=== PATIENT | female | born 1985 | race Caucasian/White ===

== ENCOUNTER → 2016-06-30 | Outpatient (CLI) | payer BC ==
[~2016-06-30] MED LIST: IBUP-1050 PO; LEVO50TA6 PO; NORETAB25 PO; OXYC-57 PO; POLY335019 PO; PRENTAB26 PO; [UNRECOGNIZED DRUG - OTHER]; [UNRECOGNIZED DRUG - OTHER] PO
[2016-06-30 13:04] LABS: BASO % 0.1 %; BASO ABS # 0.01 K/uL (0-0.2); COMPLETE YES; EOS % 0.9 %; HEMATOCRIT 30.6 % (37-47); IG% 1.1 %; LYMPH % 20.8 %; LYMPH ABS # 2.36 K/uL (1.2-3.4); MEAN CELL VOLUME 82.3 fL (80-100); MEAN CORPUSCULAR HEMOGLOBIN 28.5 pg (25-34); MEAN CORPUSCULAR HGB CONC 34.6 g/dl (32-36); MEAN PLATELET VOLUME 9.2 fL (7.4-10.4); MONO % 6.2 %; NEUT % 70.9 %; PLATELET COUNT 294 K/uL (130-400); RED BLOOD COUNT 3.72 M/uL (4.2-5.4); WHITE BLOOD COUNT 11.35 K/uL (4.8-10.8)
== END | disposition home or self-care (01) ==
LOC: C.LABBC 10:41
PROVIDERS: ATTEND Internal Medicine
DX: R29.898 Other symptoms and signs involving the musculoskeletal system (principal)

== ENCOUNTER → 2016-06-30 | Outpatient (CLI) | payer BC ==
[2016-06-30 13:42] LABS: THYROID STIMULATING HORMONE 0.324 uIu/ml (0.300-4.500)
== END | disposition home or self-care (01) ==
LOC: C.LABBC 10:39
PROVIDERS: ATTEND Internal Medicine Endocrinology, Diabetes & Metabolism
DX: E03.9 Hypothyroidism, unspecified (principal)

== ENCOUNTER → 2016-07-28 | Outpatient (CLI) | payer BC ==
[2016-07-28 11:35] LABS: THYROID STIMULATING HORMONE 0.503 uIu/ml (0.300-4.500)
== END | disposition home or self-care (01) ==
LOC: C.LABBC 10:10
PROVIDERS: ATTEND Internal Medicine Endocrinology, Diabetes & Metabolism
DX: E03.9 Hypothyroidism, unspecified (principal)

== ENCOUNTER → 2016-08-10 | Outpatient (CLI) | payer BC ==
[2016-08-10 10:57] LABS: HEMATOCRIT 30.6 % (37-47)
[2016-08-10 12:05] LABS: URINE APPEARANCE CLEAR (CLEAR); URINE BILIRUBIN NEG (NEG); URINE COLOR YELLOW; URINE EPITHELIAL CELL AUTO 20-30 /lpf (0-5); URINE NITRITE NEG (NEG); URINE SPECIFIC GRAVITY 1.011 (1.000-1.030); UROBILINOGEN NEG (NEG)
[2016-08-10 12:06] LABS: MANUAL MICROSCOPIC REQUIRED? NO; REVIEW REQ? NO
[2016-08-10 12:13] LABS: GTGD 50 Grams
== END | disposition home or self-care (01) ==
LOC: C.LAB1850 09:19
PROVIDERS: ATTEND Obstetrics & Gynecology
DX: Z34.82 Encounter for supervision of other normal pregnancy, second trimester (principal)

== ENCOUNTER → 2016-08-25 | Outpatient (CLI) | payer BC ==
[2016-08-25 13:50] LABS: THYROID STIMULATING HORMONE 0.341 uIu/ml (0.300-4.500)
== END | disposition home or self-care (01) ==
LOC: C.LABBC 10:55
PROVIDERS: ATTEND Internal Medicine Endocrinology, Diabetes & Metabolism
DX: E03.9 Hypothyroidism, unspecified (principal)

== ENCOUNTER → 2016-10-05 | Outpatient (CLI) | payer BC ==
[~2016-10-05] MED LIST changes: +BISM1CAP; +PRLSR20 PO; +SACC250C11 PO
== END | disposition home or self-care (01) ==
LOC: C.LABSPEC 10:59
PROVIDERS: ATTEND Obstetrics & Gynecology
DX: Z34.03 Encounter for supervision of normal first pregnancy, third trimester (principal)

== ENCOUNTER → 2016-10-13 | Outpatient (CLI) | payer BC ==
[2016-10-13 11:24] LABS: ALT/SGPT 17 U/L (12-78); AST/SGOT 17 U/L (15-37); BLOOD UREA NITROGEN 9 mg/dl (7-18); BUN/CREATININE RATIO 16.7 (10-20); CALCIUM 9.4 mg/dl (8.5-10.1); CARBON DIOXIDE 24 mmol/L (21-32); CHLORIDE 104 mmol/L (98-107); CREATININE 0.53 mg/dl (0.60-1.20); GLUCOSE 73 mg/dl (70-99); POTASSIUM 4.1 mmol/L (3.5-5.1); SODIUM 139 mmol/L (136-145)
[2016-10-13 11:26] LABS: ALB/GLOB RATIO 0.6 (0.9-2); ALKALINE PHOSPHATASE 107 U/L (45-117)
[2016-10-17 18:16] LABS: CHENODEOXYCHOLIC ACID 0.7 umol/L (< OR = 3.1); CHOLIC ACID 0.7 umol/L (< OR = 1.8); DEOXYCHOLIC ACID 1.3 umol/L (< OR = 2.4); TOTAL BILE ACIDS 2.7 umol/L (< OR = 6.8)
== END | disposition home or self-care (01) ==
LOC: C.LABBC 08:52
PROVIDERS: ATTEND Obstetrics & Gynecology
DX: R21 Rash and other nonspecific skin eruption (principal)

== ENCOUNTER 2016-10-31 17:31 | Outpatient (CLI) | payer BC ==
[~2016-10-31] VITALS: Ht 162.6 cm; Wt 90.0 kg
[2016-10-31 18:20] VITALS: Ht 162.6 cm; Wt 90.0 kg
[2017-01-22] MEDS ORDERED: [UNRECOGNIZED DRUG - OTHER] PO (07:56)
[2017-01-22] MEDS ORDERED: IBUP-1050 PO (07:56)
[2017-01-22] MEDS ORDERED: NORETAB25 PO (07:56)
[2017-03-22] MEDS ORDERED: BISM1CAP (08:41)
[2017-03-22] MEDS ORDERED: SACC250C11 PO (08:41)
[2017-03-22] MEDS ORDERED: PRLSR20 PO (08:41)
== END 2016-10-31 18:30 | disposition home or self-care (01) ==
LOC: C.LD 17:31 → C.OPB 17:31
PROVIDERS: ATTEND Obstetrics & Gynecology
DX: O99.89 Other specified diseases and conditions complicating pregnancy, childbirth and the puerperium (principal); W19.XXXA Unspecified fall, initial encounter; Z3A.39 39 weeks gestation of pregnancy

== ENCOUNTER 2016-11-02 09:29 | Inpatient (IN) | payer BC ==
[~2016-11-02] VITALS: Ht 162.6 cm; Wt 90.9 kg
[2016-11-02] MEDS ORDERED: LACTATED RINGER'S 1000ML 1,000 ML IV PRN (10:23)
[2016-11-02] MEDS ORDERED: MISOPROSTOL 25 MCG TAB PV ONE (10:30)
[2016-11-02 10:48] LABS: HEMATOCRIT 34.5 % (37-47); MEAN CELL VOLUME 86.7 fL (80-100); MEAN CORPUSCULAR HEMOGLOBIN 30.7 pg (25-34); MEAN CORPUSCULAR HGB CONC 35.4 g/dl (32-36); MEAN PLATELET VOLUME 9.3 fL (7.4-10.4); PLATELET COUNT 218 K/uL (130-400); RED BLOOD COUNT 3.98 M/uL (4.2-5.4); WHITE BLOOD COUNT 11.84 K/uL (4.8-10.8)
[2016-11-02 11:15] LABS: AST/SGOT 15 U/L (15-37); CREATININE 0.57 mg/dl (0.60-1.20)
[2016-11-02 11:30] VITALS: Ht 162.6 cm; Wt 90.9 kg
[2016-11-02] MEDS ORDERED: PRENTAB26 PO (11:40)
[2016-11-02] MEDS ORDERED: LEVO50TA6 PO (11:40)
[2016-11-02] MEDS ORDERED: POLY335019 PO (11:42)
[2016-11-02] MEDS ORDERED: [UNRECOGNIZED DRUG - OTHER] (11:42)
[2016-11-02] MEDS ORDERED: BUTORPHANOL TARTRATE 1 MG/ML VIAL IV PRN (23:30)
[2016-11-03] MEDS: LACTATED RINGER'S 1000ML 1,000 ML IV SCH ×3 (02:40→21:44)
[2016-11-03] MEDS ORDERED: LACTATED RINGER'S 1000ML 500 ML IV PRN ×2 (06:35→14:15)
[2016-11-03] MEDS: LEVOTHYROXINE 50 MCG TAB PO SCH (07:01)
[2016-11-03] MEDS: OXYTOCIN 30 UNITS/500ML NSS IV PRN ×2 (08:40→18:50)
[2016-11-03] MEDS ORDERED: FENTANYL 2MCG/ML ROPIV 1.25MG/ML 100ML BAG EPI ONE (13:57)
[2016-11-03] MEDS ORDERED: BUPIVACAINE 0.25% 30 ML VIAL ONE (13:57)
[2016-11-03] MEDS ORDERED: EpHEDrine SULFATE INJ 50 MG/ML AMP ONE (13:57)
[2016-11-03] MEDS ORDERED: FENTANYL CITRATE INJ 50 MCG/1 ML 2 ML VIAL ONE (13:58)
[2016-11-03] MEDS ORDERED: NALOXONE HCL INJ 0.4 MG/1 ML VIAL/CARP IV PRN (14:15)
[2016-11-03] MEDS ORDERED: DiphenhydrAMINE HCL 50 MG/ML VIAL IV PRN (14:15)
[2016-11-03] MEDS ORDERED: ONDANSETRON INJ 2 MG/ML 2 ML VIAL IV PRN (14:15)
[2016-11-03] MEDS ORDERED: EpHEDrine SULFATE INJ 50 MG/ML AMP IV PRN (14:15)
[2016-11-03] MEDS ORDERED: NALBUPHINE HCL INJ 10 MG/ML AMP IV PRN (14:15)
[2016-11-03] MEDS ORDERED: NALOXONE HCL INJ 1 MG in SODIUM CHLORIDE 0.9% 1000ML 1,000 ML IV PRN (14:15)
[2016-11-03] MEDS: FENTANYL 2MCG/ML ROPIV 1.25MG/ML 100ML BAG EPI PRN ×2 (18:50→21:43)
[2016-11-04] VITALS (9 sets, daily range): BP systolic 118–143; BP diastolic 70–83; PULSE 83–86; TEMP 36.8–37.3; O2SAT 96–98
[2016-11-04] MEDS: FENTANYL 2MCG/ML ROPIV 1.25MG/ML 100ML BAG EPI PRN ×5 (00:12→08:58)
[2016-11-04] MEDS ORDERED: NURSING VERBAL MED ORDER ONE ×2 (04:00→20:00)
[2016-11-04] MEDS: LACTATED RINGER'S 1000ML 1,000 ML IV SCH ×2 (04:06→06:33)
[2016-11-04] MEDS ORDERED: FENTANYL CITRATE INJ 50 MCG/1 ML 2 ML VIAL ONE ×2 (04:40→08:56)
[2016-11-04] MEDS: LEVOTHYROXINE 50 MCG TAB PO SCH (07:30)
[2016-11-04] MEDS: OXYTOCIN 30 UNITS/500ML NSS IV PRN (08:33)
[2016-11-04] MEDS ORDERED: BUPIVACAINE 0.25% 30 ML VIAL ONE (08:56)
--- NOTE | 2016-11-04 09:30 | Anesthesiology Progress Note ---
Anesthesia Progress Note Date of Service Nov 04, 2016. Progress Notes Pt state having increasing labor pains. She states having back pain and lower abdominal discomfort with contractions. I administered fentanyl 100mcg and 2mL of 0.25% bupivacaine through her epidural. VSS throughout. Pt stated having improved pain relief with the epidural bolus.
[2016-11-04] MEDS ORDERED: LACTATED RINGER'S 1000ML 1,000 ML IV SCH ×2 (12:20→13:53)
[2016-11-04] MEDS ORDERED: CITRIC ACID/SODIUM CITRATE 15 ML UDC ONE (12:23)
[2016-11-04] MEDS ORDERED: CITRIC ACID/SODIUM CITRATE 15 ML UDC PO ONE (12:30)
[2016-11-04] MEDS ORDERED: LIDOCAINE/EPINEPHRINE 2% 1:200,000 20 ML SDV ONE (12:48)
[2016-11-04] MEDS ORDERED: CEFAZOLIN IV 2,000 MG in DEXTROSE 5% 50ML 50 ML IV SCH (13:00)
[2016-11-04] MEDS ORDERED: MoRPHine SULFATE PF 1 MG/ML 10 ML AMP/VIAL ONE (13:14)
[2016-11-04] MEDS ORDERED: ONDANSETRON INJ 2 MG/ML 2 ML VIAL ONE (13:18)
[2016-11-04] MEDS ORDERED: OXYTOCIN INJ 10 UNITS/ML VIAL ONE (13:18)
[2016-11-04] MEDS ORDERED: FENTANYL CITRATE INJ 50 MCG/1 ML 2 ML VIAL IV PRN (13:45)
[2016-11-04] MEDS ORDERED: ATROPINE SULFATE 0.1 MG/ML 5ML SYR IV PRN (13:45)
[2016-11-04] MEDS ORDERED: NO NARCOTICS OR SEDATIVES SCH ×2 (13:45→16:45)
[2016-11-04] MEDS ORDERED: EpHEDrine SULFATE INJ 50 MG/ML AMP IV PRN (13:45)
[2016-11-04] MEDS ORDERED: MoRPHine SULFATE PF 1 MG/ML 10 ML AMP/VIAL EPI PRN (13:45)
[2016-11-04] MEDS ORDERED: DC INTRASPINAL MORPHINE PRN (13:45)
[2016-11-04] MEDS ORDERED: CONTINUE MEDICATION ONE (13:45)
[2016-11-04] MEDS ORDERED: MEPERIDINE HCL 25 MG/ML CARP IV PRN (13:45)
[2016-11-04] MEDS ORDERED: ONDANSETRON INJ 2 MG/ML 2 ML VIAL IV PRN ×2 (13:45→14:00)
--- NOTE | 2016-11-04 13:57 | Anesthesia Procedure Note ---
Anesthesia Epidural Removal Nt Date & Time Nov 04, 2016 at 13:57 Vital Signs Pain Intensity: 2.0 Notes Mental Status: alert / awake / arousable, participated in evaluation Nausea / Vomiting: adequately controlled Pain: adequately controlled Airway Patency, RR, SpO2: stable & adequate BP & HR: stable & adequate Hydration State: stable & adequate Neuraxial Anesthesia: was administered, sensory block is resolving Anesthetic Complications: no major complications apparent, pt satisfied with anesthetic care Epidural: removed without complications, with tip intact
[2016-11-04] MEDS ORDERED: HYDROCORTISONE ACETATE 25 MG SUPP PR PRN (14:00)
[2016-11-04] MEDS ORDERED: DiphenhydrAMINE HCL 50 MG/ML VIAL IV PRN (14:00)
[2016-11-04] MEDS ORDERED: OXYCODONE/ACETAMINOPHEN 5-325 TAB PO PRN (14:00)
[2016-11-04] MEDS ORDERED: SUPERCREAM 0.870 % 15GM JAR EXT PRN (14:00)
[2016-11-04] MEDS ORDERED: DIPHTHERIA/TETANUS/PERTUSSIS 0.5 ML SYR/VIAL IM. ONE (14:00)
[2016-11-04] MEDS ORDERED: BENZOCAINE 20% AER SPR 82.5 GM CAN EXT PRN (14:00)
[2016-11-04] MEDS ORDERED: LANOLIN OINT EXT PRN ×2 (14:00)
[2016-11-04] MEDS ORDERED: CARBOPROST TROMETHAMINE 250 MCG/ML AMP ONE (14:19)
--- NOTE | 2016-11-04 14:20 | Anesthesiology Progress Note ---
Anesthesia Post Op Note Date & Time Nov 04, 2016 at 14:20 Vital Signs Pain Intensity: 2.0 Notes Mental Status: alert / awake / arousable, participated in evaluation Pt Amnestic to Procedure: Yes Nausea / Vomiting: adequately controlled Pain: adequately controlled Airway Patency, RR, SpO2: stable & adequate BP & HR: stable & adequate Hydration State: stable & adequate Neuraxial Anesthesia: was administered, sensory block is resolving Anesthetic Complications: no major complications apparent
--- NOTE | 2016-11-04 14:32 | [facility] Post Operative Brief Note ---
Immediate Operative Summary Operative Date Nov 04, 2016. Pre-Operative Diagnosis 40 Week Intrauterine ;Gestational Hypertension; Induction of Labor; Failure to Progress; Post-Operative Diagnosis Same Procedure(s) Performed Primary Caesarean Section; Delivery of a live femaile child at [address] Clarke Gandy Dancer Surgeon(s) Melissa Salter RN Estimated Blood Loss 800 cc Findings viable female, apgars 9,9. ROP. Normal uterus tubes and ovaries bilaterally. Fluids (cc crystalloids) 1400 Specimens cord blood placenta-examine Drains fortune Anesthesia epidural with duramorph Complication(s) None Disposition Recovery Room / PACU
--- NOTE | 2016-11-04 14:40 | OPERATIVE REPORT ---
DATE OF OPERATION: 11/04/2016 PREOPERATIVE DIAGNOSES: 1. 40+ weeks intrauterine . 2. Gestational hypertension. 3. Induction of labor. 4. Failure to progress. POSTOPERATIVE DIAGNOSES: Same. PROCEDURE: Primary low transverse section. SURGEON: Fang Clarke MD PLASTICS TECHNICIAN: RN. IV FLUIDS: 1400 mL. ESTIMATED BLOOD LOSS: 800 mL. URINE OUTPUT: 200 mL. ANESTHESIA: Epidural with Duramorph. FINDINGS: Viable female infant, Apgars 9 and 9. Normal uterus, tubes and ovaries bilaterally. BRIEF HISTORY AND HOSPITAL COURSE: A 31-year-old 1, para 0 at 40 and 1/7 weeks estimated gestational age on the day of her admission due to gestational hypertension of . The patient's cervix was unfavorable and she did undergo cervical ripening to include Cytotec as well as Rodriugez mechanical balloon dilation. Ultimately, she began Pitocin in the morning of 11/03/2016. Her membranes were artificially ruptured for clear fluid. She progressed to approximately 8 cm dilated. She required placement of several IUPCs in order to try to trace adequate MVUs with the use of Pitocin at one point up to 40 milliunits per minute. Despite efforts to improve the labor pattern, the cervical dilation remained at 8 cm and decision was made to proceed with section for failure to progress on 11/04/2016. DESCRIPTION OF PROCEDURE: The patient was taken to the operating room and identified. She had been bolused through her epidural and was in the supine position with a leftward tilt and prepped and draped in the usual sterile fashion. A Rodriguez catheter had already been placed. Her anesthesia level was tested and deemed adequate. The knife was then used to create a Pfannenstiel skin incision that was carried down to the underlying layer of fascia. The fascia was nicked in the midline and this opening was extended laterally using Nice scissors. Cynthia clamps were placed on the superior and inferior aspects of the fascial incision tenting it upwards and the underlying rectus muscles were dissected off the overlying fascia, both sharply and bluntly using Nice scissors. The rectus muscles were bluntly in the midline. The peritoneal cavity was bluntly entered into. Bladder blade was placed. The vesicouterine peritoneum was elevated with a Danielle clamp and incised with Metzenbaum scissors. It was extended laterally and the bladder flap was created digitally. The bladder blade was replaced. The knife was used to create a hysterotomy that was then stretched. Clear fluid was noted. The quencher operator's hand was placed through the hysterotomy and the head was elevated out of the pelvis and flexed. The bladder blade was removed. With fundal pressure, the cephalic was delivered. The anterior shoulder easily was being delivered and therefore the remainder of the body was delivered. The was vigorous and crying at and the mouth and nose were bulb suctioned. At approximately 30 seconds of life the cord was clamped, it was then doubly clamped and cut and the was handed off to the awaiting pediatricians. Cord blood was obtained. The placenta was manually expressed. The uterus was exteriorized and cleared of all clots and debris. Dilute Pitocin infusion begun; however, uterine tone was poor. For that reason, 0.25 mg of subQ Hemabate was administered directly into the uterine muscle. This improved the uterine tone. The hysterotomy was closed in a routine fashion with 0 Vicryl in 2 layers, first layer running interlocking, second layer imbricating. Additional bleeding site to the left of the midline of the hysterotomy was stitched with interrupted [id number] suture of 2-0 Vicryl for excellent hemostasis. The pelvis was irrigated. The uterus returned to the abdomen. The gutters were cleared of all clots and debris. The hysterotomy was reinspected and noted to be hemostatic. The bladder blade was removed. The fascia was closed in a running fashion using 0 Vicryl. The subcutaneous fat was copiously irrigated. The subcutaneous tissues were reapproximated using 2-0 chromic. The skin was closed in a subcuticular fashion using 4-0 Vicryl. All sponge, lap and needle counts were correct x2. The patient was returned to the recovery room in stable condition. I attest to the content of the Intraoperative Record and any orders documented therein. Any exceptions are noted below. MTDD
[2016-11-04] MEDS ORDERED: MEPERIDINE HCL 25 MG/ML CARP ONE (15:07)
[2016-11-04] MEDS ORDERED: CONTINUE MEDICATION SCH (16:45)
[2016-11-04] MEDS: SIMETHICONE 80 MG CHEW PO SCH ×2 (17:44→19:36)
[2016-11-04] MEDS: OXYTOCIN INJ 20 UNITS in LACTATED RINGER'S 1000ML 1,000 ML IV SCH (17:45)
[2016-11-04] MEDS ORDERED: ACETAMINOPHEN IV 100 ML IV ONE (18:45)
[2016-11-04] MEDS: DOCUSATE SODIUM 100 MG CAP PO SCH (19:36)
[2016-11-04] MEDS ORDERED: LEVOTHYROXINE 50 MCG TAB PO SCH (20:00)
[2016-11-05] VITALS (10 sets, daily range): BP systolic 120–132; BP diastolic 76–82; PULSE 80–94; TEMP 36.6–36.8; O2SAT 94–96
[2016-11-05] MEDS: OXYTOCIN INJ 20 UNITS in LACTATED RINGER'S 1000ML 1,000 ML IV SCH (02:44)
[2016-11-05 06:28] LABS: MEAN CELL VOLUME 85.8 fL (80-100); MEAN CORPUSCULAR HEMOGLOBIN 29.3 pg (25-34); MEAN CORPUSCULAR HGB CONC 34.1 g/dl (32-36); MEAN PLATELET VOLUME 9.2 fL (7.4-10.4); PLATELET COUNT 156 K/uL (130-400); RED BLOOD COUNT 3.38 M/uL (4.2-5.4); WHITE BLOOD COUNT 13.73 K/uL (4.8-10.8)
[2016-11-05 07:11] LABS: BASO % 0.1 %; BASO ABS # 0.01 K/uL (0-0.2); COMPLETE YES; EOS % 0.9 %; IG% 0.7 %; LYMPH % 9.5 %; MONO % 5.4 %; NEUT % 83.4 %
[2016-11-05] MEDS ORDERED: DC INTRASPINAL MORPHINE ONE (07:30)
[2016-11-05] MEDS: LEVOTHYROXINE 50 MCG TAB PO SCH (07:35)
[2016-11-05] MEDS: DOCUSATE SODIUM 100 MG CAP PO SCH ×2 (07:36→19:55)
[2016-11-05] MEDS: SIMETHICONE 80 MG CHEW PO SCH ×4 (07:36→19:55)
--- NOTE | 2016-11-05 08:03 | Progress Note ---
Subjective Nov 05, 2016. Subjective conversation w/ patient, physical exam Ambulation: ambulating normally Voiding: no voiding problems Passing Gas: Yes Diet Tolerance: Clear Liquids Lochia: Small Feeding Type: Breast Feeding Pain: incisional pain and cramping Comment: reviewed surgery and events leading to surgery Objective Vital Signs Date Time Temp Pulse Resp B/P (MAP) Pulse Ox O2 Delivery O2 Flow Rate FiO2 11/05/16 06:00 18 96 11/05/16 04:59 18 95 11/05/16 04:00 36.8 80 20 127/76 (93) 95 Room Air 11/05/16 04:00 20 95 11/05/16 02:40 18 94 11/05/16 01:30 18 94 11/05/16 00:30 16 95 11/04/16 23:30 18 96 11/04/16 23:30 96 Room Air 11/04/16 23:30 36.8 85 18 127/83 (98) 96 Room Air 11/04/16 23:00 18 96 11/04/16 22:00 18 96 11/04/16 21:00 14 96 11/04/16 20:00 18 97 11/04/16 20:00 97 Room Air 11/04/16 20:00 37.3 83 18 118/70 (86) 97 Room Air 11/04/16 19:00 20 98 11/04/16 19:00 18 98 11/04/16 18:00 18 97 11/04/16 17:00 20 97 11/04/16 16:45 97 Room Air 11/04/16 16:45 37.1 86 20 143/82 (102) Room Air 11/04/16 16:40 Room Air Physical Exam General Appearance: WELL-APPEARING, WD/WN, NO APPARENT DISTRESS Respiratory/Chest: lungs clear Cardiovascular: regular rate, rhythm Abdomen: non tender, soft Fundus: Firm, Relation to Umbilicus (2 down) Incision Description: Clean, Dry & Intact Extremities: non-tender Laboratory Results Last 24 Hours Test 11/05/16 06:01 White Blood Count 13.73 K/uL Red Blood Count 3.38 M/uL Hemoglobin 9.9 g/dL Hematocrit 29.0 % Mean Corpuscular Volume 85.8 fL Mean Corpuscular Hemoglobin 29.3 pg Mean Corpuscular Hemoglobin Concent 34.1 g/dl Platelet Count 156 K/uL Mean Platelet Volume 9.2 fL Neutrophils (%) (Auto) 83.4 % Lymphocytes (%) (Auto) 9.5 % Monocytes (%) (Auto) 5.4 % Eosinophils (%) (Auto) 0.9 % Basophils (%) (Auto) 0.1 % Neutrophils # (Auto) 11.46 K/uL Lymphocytes # (Auto) 1.30 K/uL Monocytes # (Auto) 0.74 K/uL Eosinophils # (Auto) 0.13 K/uL Basophils # (Auto) 0.01 K/uL RDW Standard Deviation 42.3 fL RDW Coefficient of Variation 13.5 % Immature Granulocyte % (Auto) 0.7 % Immature Granulocyte # (Auto) 0.09 K/uL Assessment and Plan Post-Op Day#: 1 Continue Routine Care: stable, routine care. hgb noted. fortune to come out this am, await spont void. adv diet and try po pain meds.
[2016-11-05] MEDS: IBUPROFEN 600 MG TAB PO PRN ×2 (08:27→19:59)
[2016-11-05] MEDS: OXYCODONE/ACETAMINOPHEN 5-325 TAB PO PRN ×3 (08:51→20:14)
[2016-11-06] MEDS: IBUPROFEN 600 MG TAB PO PRN ×5 (02:10→21:06)
[2016-11-06] MEDS: OXYCODONE/ACETAMINOPHEN 5-325 TAB PO PRN ×4 (02:11→16:35)
[2016-11-06 06:11] LABS: HEMATOCRIT 27.4 % (37-47)
[2016-11-06 07:15] VITALS: BP 124/79; PULSE 81; TEMP 36.5
[2016-11-06] MEDS: LEVOTHYROXINE 50 MCG TAB PO SCH (07:20)
[2016-11-06] MEDS: SIMETHICONE 80 MG CHEW PO SCH ×4 (07:21→21:05)
--- NOTE | 2016-11-06 07:31 | Progress Note ---
Subjective Nov 06, 2016. Subjective conversation w/ patient (lots of swelling), physical exam Ambulation: ambulating normally Voiding: no voiding problems Feeding Type: Breast Feeding Objective Vital Signs Date Time Temp Pulse Resp B/P (MAP) Pulse Ox O2 Delivery O2 Flow Rate FiO2 11/05/16 23:20 Room Air 11/05/16 23:20 36.6 94 18 132/78 (96) 96 Room Air 11/05/16 15:44 36.6 93 18 128/82 (97) Room Air 11/05/16 15:30 Room Air 11/05/16 12:30 36.7 87 18 123/79 (94) 95 Room Air 11/05/16 08:30 96 Room Air 11/05/16 08:30 36.7 86 18 120/76 (91) 96 Room Air Physical Exam General Appearance: WELL-APPEARING, NO APPARENT DISTRESS Respiratory/Chest: lungs clear Cardiovascular: regular rate, rhythm Fundus: Firm, Non-Tender Incision Description: Clean, Dry & Intact Extremities: + pedal edema (edema in vulva too) Laboratory Results Last 24 Hours Test 11/06/16 05:55 Hemoglobin 9.5 g/dL Hematocrit 27.4 % Assessment and Plan Post-Op Day#: 2 Continue Routine Care: - discussed swelling and delayed mobilization of fluid - h/h stable - ambulate, doing well
[2016-11-06] MEDS: DOCUSATE SODIUM 100 MG CAP PO SCH ×2 (11:21→21:05)
[2016-11-06 15:51] VITALS: BP 133/88; PULSE 76; TEMP 36.2; O2SAT 94
[2016-11-07] VITALS: BP 128/85; PULSE 82; TEMP 36.6; O2SAT 97
[2016-11-07] MEDS ORDERED: LEVOTHYROXINE 50 MCG TAB PO SCH (06:30)
[2016-11-07] MEDS ORDERED: OXYC-57 PO (06:32)
--- NOTE | 2016-11-07 06:33 | Discharge Instructions ---
Discharge Instructions Date of Service Nov 07, 2016. Admission Reason for Admission: Check Labor Discharge Discharge Diagnosis / Problem: Discharge Goals Goal(s): Routine recovery after Activity Recommendations Activity Limitations: per Instructions/Follow-up section . Instructions / Follow-Up Instructions / Follow-Up ACTIVITY RECOMMENDATIONS: * Gradual return to full activity over the next 2-3 weeks. * No lifting - nothing heavier than baby over the next 2-3 weeks. * Do not engage in vigorous exercise, sexual activity or sports until cleared by your physician. * Do not drive or operate any motorized equipment until cleared by your physician. * You may shower/bathe daily. MEDICATIONS: For discomfort or pain, you may use Acetaminophen (Tylenol), Ibuprofen (Advil), or Naproxen (Aleve) following the package directions. For constipation you may use Colace following the package directions. BREAST CARE: If you are not breast feeding: * Wear a supportive bra 24 hours a day for one to two weeks. * Avoid stimulating your breasts and nipples as much as possible during the first few weeks after delivery. * When taking a shower, have the warm water hit your back, not breasts. * When your breasts feel full, apply ice packs. Usually three to four times a day helps ease the discomfort. * Take a mild pain medication (Tylenol / Motrin) when you are uncomfortable. If breast feeding: * Use breast milk to lubricate nipples. Lansinoh cream may be used for sore nipples. You do not need to remove cream prior to breast feeding. If using a different brand of cream, check the label for directions regarding removal of cream prior to nursing. * Wear a supportive bra. * If having problems with breasts or breast feeding, call a edi consultant or your health care provider. SPECIAL CARE INSTRUCTIONS: When you are discharged from the hospital, it is important for you to follow the instructions listed below: * During the first week at home, you should be able to care for yourself and your baby. In addition, the usual light household activities are encouraged. * Limit your activities to the way you feel. Do not try to clean the house or move furniture. Be sensible. * If you actively engage in sports and have done so up until the time of your delivery, you may resume these activities as soon as you feel able. This may take up to one month or even longer. Use good judgment. * Continue to take your vitamins for at least six weeks after the of your baby. * Your diet need not be limited unless you were on a special diet before your delivery. Breast-feeding mothers need around 2500 calories per day and at least 64-80 ounces of fluid per day (8 to 10 glasses). * You should eat foods from the four major food groups. Crash diets or fad diets are to be avoided. Eating lean meats, fresh fruits and vegetables, low-fat dairy products, high fiber foods and a regular exercise program, will help you get back to your pre- weight without putting your health at risk. * Constipation is sometimes a problem after delivery. Take a mild laxative as needed. If breast feeding, Milk of Magnesia is acceptable to use. You may use a suppository or Fleets enema. * A daily shower or tub bath is suggested. Wash incision daily with warm soapy water and pat dry. It doesn't need to be covered unless drainage is present. * A bloody vaginal discharge will usually continue until around four weeks . A small amount of bleeding may continue for as long as six weeks. Vaginal discharge changes from the bright red bleeding after delivery to pink then brownish and finally yellowish-pink before becoming white and disappearing. * Bleeding may increase with activity. Your first period may come in 4-8 weeks. If you are breast feeding, your period may be delayed even longer. * Iraan (sex) can begin whenever both you and your partner feel comfortable and do not have any form of genital infection. It is recommended that you wait at least six weeks for internal and external healing to occur. If you have questions, please talk to your health care practitioner. A condom should be used to prevent infection and . * Foreplay, gentle intercourse and lubrication is very important the first several times to prevent pain. A water-based lubricant such as K-Y jelly or Astroglide may be used. * If you have RH negative blood and your baby is RH positive, you will receive RHOGAM by injection prior to discharge. The nurse will give you a card to keep with you that has the date and place that you received RHOGAM after delivery. * During your care, you had a Rubella screen done to check for the presence of rubella antibodies in your blood. If your test was negative, you will receive a Rubella vaccine prior to discharge. This vaccine may cause a fever, soreness at the injection site and flu-like symptoms. If these symptoms persist, notify your health care practitioner. is not advised for one month after a Rubella vaccine. * Verbalizes understanding of car seat law as reviewed with patient nursing. * Car Seat hand-out given and reviewed with patient by nursing. * Shaken baby information reviewed with patient by nursing. Call you doctor if: * Heavy bleeding (saturating several pads an hour) or passing clots the size of your fist. * A fever >101 degrees F (38.3 degrees C) on two occasions four hours apart and /or chills. * Unusual pain in the pelvic or vaginal areas. * Call the doctor for any increased redness, drainage or swelling around the incision and any pain unrelieved by prescribed pain medication. * "Baby Blues" lasting longer than two weeks. If you have any questions or concerns, call your health care practitioner at . FOLLOW UP VISIT: * Please call the office at to schedule a 6 week examination. It is important you keep this appointment. It is important for you to make arrangements for either yearly or twice yearly check-ups thereafter. Current Hospital Diet Patient's current hospital diet: Regular OB Diet Discharge Diet Recommended Diet: Regular Diet Procedures Procedures Performed: Primary Caesarean Section; Delivery of a live femaile child at 1310 Pending Studies Studies pending at discharge: no Medical Emergencies . Who to Call and When: Medical Emergencies: If at any time you feel your situation is an emergency, please call [phone] immediately. . Non-Emergent Contact Non-Emergency issues call your: Primary Care Provider . . "Provider Documentation" section prepared by Mary Villarreal. . VTE Core Measure Inpt VTE Proph given/why not?: Treatment not indicated [place] Drug Monitoring Program Search Results: patient reviewed within database, no issues identified
--- NOTE | 2016-11-07 06:37 | Progress Note ---
Subjective Nov 07, 2016. Subjective conversation w/ patient, physical exam, chart review Ambulation: ambulating normally Voiding: no voiding problems Passing Gas: Yes Diet Tolerance: Regular Diet Lochia: Moderate Feeding Type: Breast Feeding Review of Systems Constitutional: No fever, No chills Respiratory: No cough Cardiac: No chest pain Abdomen: No nausea, No vomiting Objective Vital Signs Date Time Temp Pulse Resp B/P (MAP) Pulse Ox O2 Delivery O2 Flow Rate FiO2 11/07/16 00:00 36.6 82 18 128/85 (99) 97 Room Air 11/07/16 00:00 97 Room Air 11/06/16 15:51 36.2 76 20 133/88 (103) 94 Room Air 11/06/16 07:15 36.5 81 20 124/79 (94) Room Air 11/06/16 07:15 Room Air Physical Exam General Appearance: WELL-APPEARING, NO APPARENT DISTRESS Respiratory/Chest: no respiratory distress, no accessory muscle use Cardiovascular: no edema Abdomen: non tender, soft Fundus: Firm Incision Description: Clean, Dry & Intact Extremities: no calf tenderness Assessment and Plan Post-Op Day#: 3 Continue Routine Care: Multiple questions answered yesterday and today. Patient in good spirits generally, but is disappointed that baby has lost 10% of weight and she is being asked to supplement. Encouraged to follow reccs as "fed is best." Patient desires D/C home today. Instructions reviewed.
[2016-11-07 08:00] VITALS: BP 132/85; PULSE 80; TEMP 36.6; O2SAT 97
[2016-11-07] MEDS: DOCUSATE SODIUM 100 MG CAP PO SCH (08:46)
[2016-11-07] MEDS: SIMETHICONE 80 MG CHEW PO SCH ×2 (08:46→12:34)
[2016-11-07] MEDS: OXYCODONE/ACETAMINOPHEN 5-325 TAB PO PRN ×2 (08:47→12:36)
[2016-11-07] MEDS: IBUPROFEN 600 MG TAB PO PRN ×2 (08:47→12:36)
[2016-11-07 13:15] VITALS: BP_DIAS 85; PULSE 80; TEMP 36.6
--- NOTE | 2016-11-08 10:52 | DISCHARGE SUMMARY ---
ADMISSION DIAGNOSES: 1. 40+ weeks intrauterine . 2. Gestational hypertension. 3. Induction of labor. 4. Failure to progress. DISCHARGE DIAGNOSES: Same. PROCEDURE: Primary low transverse section. BRIEF HISTORY AND HOSPITAL COURSE: A 31-year-old 1, para 0 at 40-1/7 weeks estimated gestational age on the day of her admission due to gestational hypertension of . The patient's cervix was unfavorable and she did undergo cervical ripening to include Cytotec as well as Rodriguez mechanical balloon dilation. Ultimately, she began Pitocin on the morning of 11/03/2016. Her membranes were artificially ruptured for clear fluid. She progressed to approximately 8 cm dilated. She required placement of several IUPCs in order to try to trace adequate MVUs with the use of Pitocin, which at one point was at 40 milliunits per minute. Despite efforts to improve her labor pattern, cervical dilation remained at 8 cm and the decision was made to proceed with for failure to progress on 11/04/2016. The patient underwent the above stated procedure without incident with estimated blood loss of 800 mL. Her postop course and recovery was otherwise unremarkable. Her hemoglobin was 9.5. She was tolerating a regular diet, voiding spontaneously without difficulty and ambulating without difficulty and was stable for her discharge to home on her postop day #3. She was given appropriate discharge instructions as well as pain medication prescriptions. She is to follow up in 6 weeks time for her checkup. JUDAH
[2017-01-22] MEDS ORDERED: NORETAB25 PO (07:56)
[2017-01-22] MEDS ORDERED: [UNRECOGNIZED DRUG - OTHER] PO (07:56)
[2017-01-22] MEDS ORDERED: IBUP-1050 PO (07:56)
[2017-03-22] MEDS ORDERED: PRLSR20 PO (08:41)
[2017-03-22] MEDS ORDERED: BISM1CAP (08:41)
[2017-03-22] MEDS ORDERED: SACC250C11 PO (08:41)
== END 2016-11-07 13:15 | disposition home or self-care (01) | DRG 766 ==
LOC: C.OPB 09:29 → C.LD 09:29 → C.OPB 10:27 → C.OBG 11-04 16:47
PROVIDERS: ADMIT Obstetrics & Gynecology; ATTEND Obstetrics & Gynecology
PROC: 10D00Z1 Extraction of Products of Conception, Low, Open Approach (ICD-10-PCS; principal; 2016-11-04 12:22)
PROC: 3E0P7GC Introduction of Other Therapeutic Substance into Female Reproductive, Via Natural or Artificial Opening (ICD-10-PCS; principal; 2016-11-04 12:22)
PROC: 0U7C7ZZ Dilation of Cervix, Via Natural or Artificial Opening (ICD-10-PCS; principal; 2016-11-04 12:22)
PROC: 3E033VJ Introduction of Other Hormone into Peripheral Vein, Percutaneous Approach (ICD-10-PCS; principal; 2016-11-04 12:22)
PROC: 10H07YZ Insertion of Other Device into Products of Conception, Via Natural or Artificial Opening (ICD-10-PCS; principal; 2016-11-04 12:22)
DX: O62.2 Other uterine inertia (principal); O13.4 Gestational [pregnancy-induced] hypertension without significant proteinuria, complicating childbirth; O99.284 Endocrine, nutritional and metabolic diseases complicating childbirth; E06.3 Autoimmune thyroiditis; O48.0 Post-term pregnancy; O76 Abnormality in fetal heart rate and rhythm complicating labor and delivery; O12.05 Gestational edema, complicating the puerperium; Z37.0 Single live birth; Z3A.40 40 weeks gestation of pregnancy; Z79.899 Other long term (current) drug therapy

== ENCOUNTER → 2016-12-14 | Outpatient (CLI) | payer BC ==
[~2016-12-14] MED LIST changes: -BISM1CAP; -PRLSR20 PO; -SACC250C11 PO
== END | disposition home or self-care (01) ==
LOC: C.PAPS 09:58
PROVIDERS: ATTEND Obstetrics & Gynecology
DX: Z01.419 Encounter for gynecological examination (general) (routine) without abnormal findings (principal)

== ENCOUNTER → 2016-12-18 | Outpatient (CLI) | payer BC ==
[2016-12-18 14:23] LABS: BASO % 0.3 %; BASO ABS # 0.02 K/uL (0-0.2); COMPLETE YES; EOS % 1.3 %; HEMATOCRIT 43.2 % (37-47); IG% 0.1 %; LYMPH ABS # 1.94 K/uL (1.2-3.4); MEAN CELL VOLUME 85.5 fL (80-100); MEAN CORPUSCULAR HEMOGLOBIN 28.5 pg (25-34); MEAN CORPUSCULAR HGB CONC 33.3 g/dl (32-36); MEAN PLATELET VOLUME 9.2 fL (7.4-10.4); MONO % 6.1 %; NEUT % 65.2 %; PLATELET COUNT 355 K/uL (130-400); RED BLOOD COUNT 5.05 M/uL (4.2-5.4); WHITE BLOOD COUNT 7.18 K/uL (4.8-10.8)
[2016-12-18 14:29] LABS: ALT/SGPT 21 U/L (12-78); AST/SGOT 13 U/L (15-37); BLOOD UREA NITROGEN 15 mg/dl (7-18); BUN/CREATININE RATIO 18.2 (10-20); CALCIUM 9.3 mg/dl (8.5-10.1); CARBON DIOXIDE 29 mmol/L (21-32); CHLORIDE 107 mmol/L (98-107); CREATININE 0.83 mg/dl (0.60-1.20); GLUCOSE 76 mg/dl (70-99); POTASSIUM 4.2 mmol/L (3.5-5.1); SODIUM 139 mmol/L (136-145)
[2016-12-18 14:31] LABS: ALB/GLOB RATIO 0.9 (0.9-2); ALKALINE PHOSPHATASE 94 U/L (45-117); FERRITIN 67.8 ng/ml (8.0-388.0); TOTAL IRON BINDING CAPACITY 272 mcg/dl (250-450)
== END | disposition home or self-care (01) ==
LOC: C.LABBC 11:37
PROVIDERS: ATTEND Internal Medicine
DX: Z39.2 Encounter for routine postpartum follow-up (principal); D64.9 Anemia, unspecified

== ENCOUNTER → 2016-12-26 | Outpatient (CLI) | payer BC ==
--- NOTE | 2016-12-26 14:07 | DIAGNOSTIC IMAGING REPORT ---
CHEST 2 VIEWS ROUTINE CLINICAL HISTORY: Z39.2 6 weeks follow-up dyspnea COMPARISON STUDY: No previous studies for comparison. FINDINGS: The bones soft tissues and hemidiaphragms are normal. The cardiomediastinal silhouette is normal. The lungs are clear. The pulmonary vasculature is normal. IMPRESSION: Negative chest. The above report was generated using voice recognition software. It may contain grammatical, syntax or spelling errors. Electronically signed by: Taz Valdivia M.D. 12/26/2016 2:06 PM Dictated Date/Time: 12/26/2016 2:06 PM
--- NOTE | 2016-12-26 14:36 | DIAGNOSTIC IMAGING REPORT ---
KUB CLINICAL HISTORY: 31 years-old Female presenting with ABD PAIN. TECHNIQUE: Single supine view of the abdomen was obtained. COMPARISON: Correlation made to plain radiographs of the lumbar spine from 03/04/2015. FINDINGS: No calcifications project over the kidneys to suggest nephrolithiasis. Mild stool burden throughout the colon. Normal bowel gas pattern. No evidence of free intraperitoneal gas, pneumatosis, or portal venous gas. Osseous structures normal. IMPRESSION: 1. No acute intra-abdominal pathology. Electronically signed by: Olivier Lewis M.D. 12/26/2016 2:35 PM Dictated Date/Time: 12/26/2016 2:34 PM
== END | disposition home or self-care (01) ==
LOC: C.RADBC 13:12
PROVIDERS: ATTEND Internal Medicine Endocrinology, Diabetes & Metabolism
DX: Z39.2 Encounter for routine postpartum follow-up (principal); R06.00 Dyspnea, unspecified; R10.9 Unspecified abdominal pain

== ENCOUNTER → 2017-01-03 | Outpatient (CLI) | payer BC ==
[2017-01-03 17:29] LABS: THYROID STIMULATING HORMONE 0.35 uIu/ml (0.300-4.500)
== END | disposition home or self-care (01) ==
LOC: C.LABBC 12:36
PROVIDERS: ATTEND Internal Medicine
DX: Z39.2 Encounter for routine postpartum follow-up (principal)

== ENCOUNTER → 2017-01-07 | Outpatient (CLI) | payer BC ==
[2017-01-07 15:57] LABS: URINE APPEARANCE CLEAR (CLEAR); URINE BILIRUBIN NEG (NEG); URINE COLOR YELLOW; URINE NITRITE NEG (NEG); URINE SPECIFIC GRAVITY 1.019 (1.000-1.030); UROBILINOGEN NEG (NEG); ZZUR CULT IF INDIC CLEAN CATCH NO
[2017-01-07 16:00] LABS: MANUAL MICROSCOPIC REQUIRED? NO; REVIEW REQ? NO
== END | disposition home or self-care (01) ==
LOC: C.LABSPEC 15:15
PROVIDERS: ATTEND Obstetrics & Gynecology
DX: R10.9 Unspecified abdominal pain (principal)

== ENCOUNTER → 2017-01-08 | Outpatient (CLI) | payer BC ==
[2017-01-08 13:44] LABS: BASO % 0.2 %; BASO ABS # 0.02 K/uL (0-0.2); COMPLETE YES; HEMATOCRIT 40.4 % (37-47); IG% 0.1 %; LYMPH % 30.5 %; LYMPH ABS # 2.46 K/uL (1.2-3.4); MEAN CELL VOLUME 85.1 fL (80-100); MEAN CORPUSCULAR HGB CONC 32.9 g/dl (32-36); MEAN PLATELET VOLUME 9.2 fL (7.4-10.4); MONO % 5.8 %; NEUT % 62.4 %; PLATELET COUNT 342 K/uL (130-400); RED BLOOD COUNT 4.75 M/uL (4.2-5.4); WHITE BLOOD COUNT 8.06 K/uL (4.8-10.8)
[2017-01-08 15:28] LABS: ALT/SGPT 21 U/L (12-78); AMYLASE 57 U/L (25-115); AST/SGOT 14 U/L (15-37); BLOOD UREA NITROGEN 16 mg/dl (7-18); BUN/CREATININE RATIO 22.6 (10-20); CALCIUM 9.1 mg/dl (8.5-10.1); CARBON DIOXIDE 28 mmol/L (21-32); CHLORIDE 108 mmol/L (98-107); CREATININE 0.71 mg/dl (0.60-1.20); GLUCOSE 76 mg/dl (70-99); SODIUM 141 mmol/L (136-145)
[2017-01-08 15:29] LABS: ALB/GLOB RATIO 1.1 (0.9-2); ALKALINE PHOSPHATASE 97 U/L (45-117)
== END | disposition home or self-care (01) ==
LOC: C.LABBC 12:16
PROVIDERS: ATTEND Obstetrics & Gynecology
DX: R10.9 Unspecified abdominal pain (principal)

== ENCOUNTER → 2017-01-10 | Outpatient (CLI) | payer BC ==
--- NOTE | 2017-01-10 08:44 | DIAGNOSTIC IMAGING REPORT ---
GALLBLADDER-ABD LIMITED HISTORY: 31 years-old Female R10.9 Abdominal pain COMPARISON: KUB radiographs 12/26/2016 TECHNIQUE: Multiple real-time sonographic images of the abdominal right upper quadrant were obtained assessing grayscale appearance FINDINGS: The imaged pancreas is unremarkable. There are at least 3 nonspecific echogenic lesions of of the left hepatic lobe, largest of which measures 1.2 x 0.9 cm. The gallbladder appears unremarkable without shadowing cholelithiasis, gallbladder wall thickening or pericholecystic fluid. Sonographic Johnson sign was reported as negative. Common bile duct is normal, 0.4 cm. Right kidney measures 10.7 cm in length and demonstrates no hydronephrosis. IMPRESSION: 1. Normal sonographic appearance of the gallbladder without cholelithiasis or sonographic evidence of acute cholecystitis. 2. At least 3 nonspecific echogenic lesions of the left hepatic lobe, largest of which measures up to 1.2 cm may reflect hemangiomas, however are nonspecific. 3. No biliary ductal dilatation. The above report was generated using voice recognition software. It may contain grammatical, syntax or spelling errors. Electronically signed by: John Rosa M.D. 01/10/2017 8:43 AM Dictated Date/Time: 01/10/2017 8:29 AM
== END | disposition home or self-care (01) ==
LOC: C.ULTRBC 07:40
PROVIDERS: ATTEND Obstetrics & Gynecology
DX: R10.9 Unspecified abdominal pain (principal); K76.9 Liver disease, unspecified

== ENCOUNTER → 2017-02-01 | Outpatient (CLI) | payer BC ==
--- NOTE | 2017-02-01 17:29 | DIAGNOSTIC IMAGING REPORT ---
ABDOMEN AND PELVIS CT WITH ORAL CONTRAST CT DOSE: 367.45 mGy.cm HISTORY: Generalized abdominal pain. Nausea. TECHNIQUE: Multiaxial CT images of the abdomen and pelvis were performed following the use of oral contrast. A dose lowering technique was utilized adhering to the principles of ALARA. COMPARISON STUDY: Abdominal ultrasound 01/10/2017. FINDINGS: The lung bases are clear. No pneumoperitoneum or pneumatosis. Mild sclerosis and irregularity within the left sacroiliac joint. Prior scar. There are 2 hypodense lesions within the left hepatic lobe with the largest measuring 1 cm. These are incompletely characterize on this noncontrast study. The spleen, pancreas, gallbladder, adrenal glands, and right kidney are unremarkable. There is a punctate stone within the left kidney. No ureteral stones. No hydronephrosis. No retroperitoneal lymphadenopathy. The bladder, uterus, and ovaries are within normal limits. No pelvic free fluid. No bowel wall thickening or obstruction. A few sigmoid diverticula. Normal appendix. IMPRESSION: 1. No bowel wall thickening or obstruction. 2. Left-sided nephrolithiasis. No ureteral stones. No hydronephrosis. 3. Mild sclerosis and irregularity within the left sacroiliac joint. This raises the possibility of a unilateral sacroiliitis versus asymmetric early degenerative change. 4. There are 2 hypodense lesions within the left hepatic lobe. These are incomplete characterize on this noncontrast study. However, these are likely benign. Electronically signed by: Trae Mcgarry M.D. 02/01/2017 5:27 PM Dictated Date/Time: 02/01/2017 5:16 PM
== END | disposition home or self-care (01) ==
LOC: C.CTS 14:59
PROVIDERS: ATTEND Physician Assistant
DX: R10.9 Unspecified abdominal pain (principal); N20.0 Calculus of kidney; K76.9 Liver disease, unspecified

== ENCOUNTER → 2017-02-27 | Outpatient (CLI) | payer BC ==
[~2017-02-27] MED LIST changes: -OXYC-57 PO; -PRENTAB26 PO; -[UNRECOGNIZED DRUG - OTHER]
[2017-02-27 11:05] LABS: URINE APPEARANCE CLEAR (CLEAR); URINE BILIRUBIN NEG (NEG); URINE COLOR YELLOW; URINE NITRITE NEG (NEG); URINE SPECIFIC GRAVITY 1.022 (1.000-1.030); UROBILINOGEN NEG (NEG)
[2017-02-27 11:09] LABS: MANUAL MICROSCOPIC REQUIRED? NO; REVIEW REQ? NO
== END | disposition home or self-care (01) ==
LOC: C.LABBC 08:04
PROVIDERS: ATTEND Obstetrics & Gynecology
DX: R39.9 Unspecified symptoms and signs involving the genitourinary system (principal)

== ENCOUNTER → 2017-03-13 | Day surgery (SDC) | payer BC ==
[2017-01-22 07:57] VITALS: BMI 28.0
[2017-03-12 08:18] VITALS: Ht 162.6 cm; Wt 74.1 kg
[~2017-03-13] VITALS: Ht 162.6 cm; Wt 74.1 kg
[~2017-03-13] MED LIST changes: +BISM1CAP; +LIDOCAINE HCL 2% 2 ML VIAL (20MG/ML) ONE; +PRLSR20 PO; +PROPOFOL IV EMULSION 10 MG/ML 20 ML VIAL IV ONE; +SACC250C11 PO; +SODIUM CHLORIDE 0.9% 500ML 500 ML IV ONE
--- NOTE | 2017-03-13 12:14 | Endo History and Physical ---
History & Physical Date of Service: Mar 13, 2017. Chief Complaint: abdominal pain Referring Physician: Dr. Olivier Waldrop History of Present Illness 32 yo CF who presents for colonoscopy secondary to abdominal pain. Past Surgical History Hx Cardiac Surgery: No Hx Internal Defibrillator: No Hx Pacemaker: No Hx Abdominal Surgery: Yes ( AND LABIAPLASTY) Hx of Implantable Prosthesis: No Hx Post-Op Nausea and Vomiting: No Hx Cancer Surgery: No Hx Thoracic Surgery: No Hx Orthopedic: No Hx Urinary Tract Surgery: No Family History None Social History Smoking Status: Never Smoker Hx Substance Use: No Hx Alcohol Use: No Allergies Coded Allergies: Aspirin (Verified Allergy, Unknown, FATHER-ANAPHYLAXIS SO DOESN'T TAKE, ) Pt states father has anaphylactic reaction to aspirin so pt has never taken it. She has taken Motrin with no reaction Caffeine (Verified Allergy, Unknown, FATHER-ANAPHYLAXIS SO DOESN'T TAKE, 03/13/17) Pt states father has anaphylactic reaction to aspirin so pt has never taken it. She has taken Motrin with no reaction Phenacetin (Verified Allergy, Unknown, FATHER ANAPHYLAXIS, SO DOESN'T TAKE , 03/13/17) Pt states father has anaphylactic reaction to aspirin so pt has never taken it. She has taken Motrin with no reaction Pork (Verified Allergy, Unknown, no reaction, 03/13/17) mu-ism preference Current Medications Reported Home Medications Medications Dose Route/Sig Max Daily Dose Days Date Category Advil (Ibuprofen) 200 Mg Tab 400-600 Mg PO Q6H PRN 01/22/17 Reported Ortho Micronor (Norethindrone (Contraceptive)) 0.35 Mg Tab 1 Tab PO HS 01/22/17 Reported [ Mvi] 1 Tab PO QPM 01/22/17 Reported Miralax (Polyethylene Glycol 3350) 1 Pow Pow 17 Gm PO QAM PRN 11/02/16 Reported Levothyroxine Sodium 50 Mcg Tab 1 Tab PO QAM 11/02/16 Reported Vital Signs Weight (Kilograms): 74.09 Height (Feet): 5 Height (Inches): 4 Date Time Temp Pulse Resp B/P (MAP) Pulse Ox O2 Delivery O2 Flow Rate FiO2 03/13/17 11:46 36.6 99 18 129/81 (97) 98 Room Air Physical Exam General Appearance: WD/WN, no apparent distress Respiratory/Chest: Auscultation: breath sounds normal Cardiovascular: Heart Auscultation: RRR Abdomen: Bowel Sounds: normal Inspection & Palpation: soft, non-distended, no tenderness, guarding & rebound Assessment and Plan Assessment: 32 yo CF who presents for EGD secondary to abdominal pain. Plan: Proceed with EGD.
--- NOTE | 2017-03-13 12:50 | Discharge Instructions ---
Endoscopy Patient Instructions Date / Procedure(s) Performed Mar 13, 2017. EGD Allergy Information Coded Allergies: Aspirin (Verified Allergy, Unknown, FATHER-ANAPHYLAXIS SO DOESN'T TAKE, ) Pt states father has anaphylactic reaction to aspirin so pt has never taken it. She has taken Motrin with no reaction Caffeine (Verified Allergy, Unknown, FATHER-ANAPHYLAXIS SO DOESN'T TAKE, 03/13/17) Pt states father has anaphylactic reaction to aspirin so pt has never taken it. She has taken Motrin with no reaction Phenacetin (Verified Allergy, Unknown, FATHER ANAPHYLAXIS, SO DOESN'T TAKE , 03/13/17) Pt states father has anaphylactic reaction to aspirin so pt has never taken it. She has taken Motrin with no reaction Pork (Verified Allergy, Unknown, no reaction, 03/13/17) bahai preference Discharge Date / Findings Mar 13, 2017. Gastritis s/p biopsies Medication Instructions OK to resume all medications today as prescribed Reported Home Medications Medications Dose Route/Sig Max Daily Dose Days Date Category Advil (Ibuprofen) 200 Mg Tab 400-600 Mg PO Q6H PRN 01/22/17 Reported Ortho Micronor (Norethindrone (Contraceptive)) 0.35 Mg Tab 1 Tab PO HS 01/22/17 Reported [ Mvi] 1 Tab PO QPM 01/22/17 Reported Miralax (Polyethylene Glycol 3350) 1 Pow Pow 17 Gm PO QAM PRN 11/02/16 Reported Levothyroxine Sodium 50 Mcg Tab 1 Tab PO QAM 11/02/16 Reported Provider Instructions Activity Restrictions - No exercising or heavy lifting for 24 hours. - Do not drink alcohol the day of the procedure. - Do not drive a car or operate machinery until the day after the procedure. - Do not make any important decisions or sign important papers in 24 hours after the procedure. Following Day: - Return to full activity which may include returning to work/school. Diet Start your diet with liquids and light foods (jello, soup, juice, toast). Then eat your usual diet if not nauseated. Treatment For Common After Affects For mild abdominal pain, bloating, or excessive gas: - Rest - Eat lightly - Lie on right side Follow-Up Information Follow-up with Dr. Olivier Waldrop as scheduled Anesthesia Information What You Should Know You have had a procedure that required some medicine to reduce anxiety and discomfort. This treatment is called moderate sedation. After receiving the treatment, you may be sleepy, but you will be able to breathe on your own. The effects of the treatment may last for several hours. Follow these instructions along with Activity/Diet recommendations noted above: * Do NOT do anything where dizziness or clumsiness would be dangerous. * Rest quietly at home today, then you can be up and about tomorrow. * Have a responsible person stay with you the rest of today. * You may have had an I.V. today. If so, you may take the dressing off later today. Recommendations Call your doctor if: * Trouble breathing * Continuous vomiting for more than 24 hours * Temperature above 101 degrees * Severe abdominal pain or bloating * Pain not relieved by pain medicine ordered * There is increased drainage or redness from any incision * A large amount of rectal bleeding greater than 2-3 tablespoons. (If you had a polyp/s removed or have hemorrhoids, a small amount of blood - from the rectum is to be expected.) * You have any unanswered questions or concerns. IN THE EVENT OF A SERIOUS EMERGENCY, GO TO THE NEAREST EMERGENCY ROOM Your discharge instructions were prepared by provider Abhishek Huitron. Patient Instructions Signature Page Carlee Lawler Patient (or Guardian) Signature/Date: I have read and understand the instructions given to me by my caregivers. Caregiver/RN/Doctor Signature/Date: The above-named patient and/or guardian has received patient instructions on this date. + Original Patient Signature Page (only) stays with chart. Please make copy for patient.
--- NOTE | 2017-03-13 12:53 | GI REPORT ---
Procedure Date: 03/13/2017 12:25 PM Procedure: Upper GI endoscopy Indications: Epigastric abdominal pain Medicines: Monitored Anesthesia Care Complications: No immediate complications. Estimated Blood Loss: Estimated blood loss: none. Procedure: Pre-Anesthesia Assessment: - Prior to the procedure, a History and Physical was performed, and patient medications and allergies were reviewed. The patient's tolerance of previous anesthesia was also reviewed. The risks and benefits of the procedure and the sedation options and risks were discussed with the patient. All questions were answered, and informed consent was obtained. Prior Anticoagulants: The patient has taken no previous anticoagulant or antiplatelet agents. ASA Grade Assessment: II - A patient with mild systemic disease. After reviewing the risks and benefits, the patient was deemed in satisfactory condition to undergo the procedure. After obtaining informed consent, the endoscope was passed under direct vision. Throughout the procedure, the patient's blood pressure, pulse, and oxygen saturations were monitored continuously. The On-site loaner was introduced through the mouth, and advanced to the second part of duodenum. The upper GI endoscopy was accomplished without difficulty. The patient tolerated the procedure well. Findings: The esophagus was normal. Localized mild inflammation characterized by erythema was found in the gastric antrum. Biopsies were taken with a cold forceps for histology. The examined duodenum was normal. Impression: - Normal esophagus. - Gastritis. Biopsied. - Normal examined duodenum. Recommendation: - Resume previous diet. - Continue present medications. - Await pathology results. - Return to primary care physician as previously scheduled. Abhishek Huitron DO 03/13/2017 12:52:56 PM This report has been signed electronically. Note Initiated On: 03/13/2017 12:25 PM I attest to the content of the Intraoperative Record and orders documented therein, exceptions below
[2017-03-13 13:15] VITALS: BP 100/81; PULSE 81; O2SAT 98
--- NOTE | 2017-03-13 13:18 | Anesthesiology Progress Note ---
Anesthesia Post Op Note Date & Time Mar 13, 2017 at 13:18 Vital Signs Pain Intensity: 5 Vital Signs Past 12 Hours Date Time Temp Pulse Resp B/P (MAP) Pulse Ox O2 Delivery O2 Flow Rate FiO2 03/13/17 12:59 77 16 105/76 (86) 99 Room Air 03/13/17 12:44 81 16 101/58 (72) 97 Room Air 03/13/17 11:46 36.6 99 18 129/81 (97) 98 Room Air Notes Mental Status: alert / awake / arousable, participated in evaluation Pt Amnestic to Procedure: Yes Nausea / Vomiting: adequately controlled Pain: adequately controlled Airway Patency, RR, SpO2: stable & adequate BP & HR: stable & adequate Hydration State: stable & adequate Anesthetic Complications: no major complications apparent
== END | disposition home or self-care (01) ==
LOC: C.GI 11:04
PROVIDERS: ATTEND Internal Medicine
DX: K29.50 Unspecified chronic gastritis without bleeding (principal); Z79.899 Other long term (current) drug therapy

== ENCOUNTER → 2017-03-16 | Outpatient (CLI) | payer BC ==
[~2017-03-16] MED LIST changes: -BISM1CAP; -LIDOCAINE HCL 2% 2 ML VIAL (20MG/ML) ONE; -PRLSR20 PO; -PROPOFOL IV EMULSION 10 MG/ML 20 ML VIAL IV ONE; -SACC250C11 PO; -SODIUM CHLORIDE 0.9% 500ML 500 ML IV ONE
[2017-03-16 11:36] LABS: THYROID STIMULATING HORMONE 0.859 uIu/ml (0.300-4.500)
== END | disposition home or self-care (01) ==
LOC: C.LABBC 10:09
PROVIDERS: ATTEND Internal Medicine Endocrinology, Diabetes & Metabolism
DX: E03.9 Hypothyroidism, unspecified (principal)

== ENCOUNTER → 2017-04-17 | Outpatient (CLI) | payer BC ==
[~2017-04-17] MED LIST changes: +BISM1CAP; +PRLSR20 PO; +SACC250C11 PO
--- NOTE | 2017-04-17 09:20 | DIAGNOSTIC IMAGING REPORT ---
THORACIC SPINE 3 VIEWS ROUTINE CLINICAL HISTORY: Acute back pain. COMPARISON STUDY: Thoracic spine radiographs March 04, 2015. FINDINGS: Alignment of the thoracic spine is anatomic. Vertebral body heights are maintained. No fracture or suspicious osseous lesion is identified. Disc spaces are preserved. There is minimal multilevel endplate irregularity. IMPRESSION: No significant abnormality of the thoracic spine by radiography. Electronically signed by: Fili Kumari M.D. 04/17/2017 9:19 AM Dictated Date/Time: 04/17/2017 9:18 AM
--- NOTE | 2017-04-17 09:22 | DIAGNOSTIC IMAGING REPORT ---
KUB CLINICAL HISTORY: Left-sided abdominal pain. Nephrolithiasis. COMPARISON STUDY: KUB December 26, [address] of the abdomen and pelvis February 01, 2017. FINDINGS: The bowel gas pattern is normal. A moderate amount of stool is noted within the colon. The punctate calculus within the left kidney on CT of February 01, 2017 is not visualized on this exam, possibly due to technique. IMPRESSION: 1. No evidence for a bowel obstruction. 2. No urinary calculi identified. The punctate left renal calculus shown on prior CT is not visualized on this study, possibly due to technique. 3. Moderate amount stool within the colon. Electronically signed by: Fili Kumari M.D. 04/17/2017 9:21 AM Dictated Date/Time: 04/17/2017 9:19 AM
== END | disposition home or self-care (01) ==
LOC: C.RADBC 08:26
PROVIDERS: ATTEND Nurse Practitioner Family
DX: N20.0 Calculus of kidney (principal); M54.9 Dorsalgia, unspecified

== ENCOUNTER → 2017-04-30 | Outpatient (CLI) | payer BC ==
--- NOTE | 2017-04-30 10:04 | DIAGNOSTIC IMAGING REPORT ---
CHEST 2 VIEWS ROUTINE HISTORY: Left-sided back pain. COMPARISON: Chest 12/26/2016. FINDINGS: The lungs are clear. Cardiac silhouette is normal in size. No pleural effusions. No pneumothorax. IMPRESSION: No acute process. Electronically signed by: Trae Mcgarry M.D. 04/30/2017 10:02 AM Dictated Date/Time: 04/30/2017 10:01 AM
--- NOTE | 2017-04-30 10:06 | DIAGNOSTIC IMAGING REPORT ---
SI JOINTS 3 OR MORE VIEWS CLINICAL HISTORY: Sacroiliac pain. COMPARISON STUDY: KUB 04/17/2017. FINDINGS: The sacrum is intact. No erosions identified. No fractures. Mild sclerosis identified within the lower left sacroiliac joint. IMPRESSION: 1. Mild sclerosis within the lower left sacroiliac joint. This could be due to early degenerative change or an asymmetric sacroiliitis. 2. Normal right sacroiliac joint. Electronically signed by: Trae Mcgarry M.D. 04/30/2017 10:05 AM Dictated Date/Time: 04/30/2017 10:03 AM
[2017-04-30 14:06] LABS: LYME DISEASE AB IGG NEG (NEG)
[2017-04-30 14:07] LABS: LYME DISEASE AB IGM NEG (NEG)
[2017-05-03 06:20] LABS: ANTI-CENTROMERE AB <1.0 NEG AI (<1.0 NEG); ANTI-SS-A <1.0 NEG AI (<1.0 NEG); ANTI-SS-B <1.0 NEG AI (<1.0 NEG); DNA ds CRITHIDIA NEGATIVE (NEGATIVE); MICROSOMAL AB <1 IU/ML (<9); Sm Antibody <1.0 NEG AI (<1.0 NEG)
== END | disposition home or self-care (01) ==
LOC: C.RADBC 09:15
PROVIDERS: ATTEND Internal Medicine Rheumatology
DX: M25.50 Pain in unspecified joint (principal); M54.9 Dorsalgia, unspecified; Q79.6 Ehlers-Danlos syndromes; M79.1 Myalgia; M13.0 Polyarthritis, unspecified; M46.1 Sacroiliitis, not elsewhere classified

== ENCOUNTER → 2017-05-14 | Outpatient (CLI) | payer BC | END | disposition home or self-care (01) | LOC: C.LABBC 08:44 | PROVIDERS: ATTEND Physician Assistant | DX: A04.8 Other specified bacterial intestinal infections (principal) ==

== ENCOUNTER → 2017-05-24 | Outpatient (CLI) | payer BC ==
[~2017-05-24] MED LIST changes: +NORE0.3537 PO; -NORETAB25 PO
--- NOTE | 2017-05-24 16:13 | DIAGNOSTIC IMAGING REPORT ---
MRI OF THE SACROILIAC JOINTS WITHOUT CONTRAST CLINICAL HISTORY: Sacroiliitis. Persistent back and lower extremity pain. COMPARISON STUDY: Sacroiliac joint radiographs April 22, 2017. TECHNIQUE: Utilizing 1.5 Magdalena magnet and dedicated coil, multiplanar, multiecho imaging of the sacroiliac joints was performed without intravenous contrast. FINDINGS: Visualized portions of the pelvis are on remarkable. There is no suspicious marrow replacement. No fracture is identified within the sacrum, coccyx or iliac bones. Of note, there is fluid signal within the left sacroiliac joint with irregularity along the articular margins of the left sacroiliac joint. There is moderate subchondral edema within the iliac and sacral aspects of the left sacroiliac joint. There are also similar findings within the right inferior sacroiliac joint. The findings favor sacroiliitis. The adjacent soft tissues are on remarkable. IMPRESSION: Fluid signal within the left sacroiliac joint. Irregularity of the articular margins and subchondral edema adjacent to the bilateral sacroiliac joints. The findings favor bilateral sacroiliitis. Osteoarthritis could appear similar although is considered less likely. Electronically signed by: Fili Kumari M.D. 05/24/2017 4:12 PM Dictated Date/Time: 05/24/2017 2:56 PM
== END | disposition home or self-care (01) ==
LOC: C.MRI 14:00
PROVIDERS: ATTEND Internal Medicine Rheumatology
DX: M46.1 Sacroiliitis, not elsewhere classified (principal)

== ENCOUNTER → 2017-07-26 | Outpatient (CLI) | payer OTHER ==
[~2017-07-26] MED LIST changes: -NORE0.3537 PO; +NORETAB25 PO; +OPTIRAY 320 IV PRN
--- NOTE | 2017-07-26 08:51 | DIAGNOSTIC IMAGING REPORT ---
CT SCAN OF THE ABDOMEN COMBO LIVER PROTOCOL CLINICAL HISTORY: Follow-up liver lesions. COMPARISON STUDY: Abdominal CT scan dated 02/01/2017 and abdominal ultrasound dated 01/10/2017. TECHNIQUE: Before and following the IV administration of 93 cc of Optiray 320, CT scan of the abdomen is performed from the lung bases to the pelvic inlet utilizing the liver protocol. Images are reviewed in the axial, sagittal, and coronal planes. IV contrast was administered without complication. A dose lowering technique was utilized adhering to the principles of ALARA. CT DOSE: 996.84 mGy.cm FINDINGS: Lung bases: The heart is normal in size and without pericardial effusion. The lung bases are clear. There is a tiny hiatal hernia. Liver: The contrast-enhanced liver is normal in size, contour, and attenuation. There is no intrahepatic biliary ductal dilatation. 2 hypodense lesions are again seen within the left lobe of the liver and are best seen on the unenhanced series (axial images #42 and #81). Hepatic and portal vasculature: Hepatic arterial anatomy is conventional. The hepatic veins, portal veins, superior mesenteric vein, and splenic vein are patent. Gallbladder: Unremarkable. Spleen: Normal in size and attenuation. Pancreas: Unremarkable. Adrenal glands: Unremarkable. Kidneys: There are 2 punctate nonobstructing left renal calculi seen on the unenhanced series. No right renal calculi are identified. The contrast enhanced kidneys are normal in size and without hydronephrosis. The kidneys enhance symmetrically. Abdominal vasculature: The abdominal aorta is normal in course and caliber. Bowel: Visualized portions of the small bowel and colon are normal in caliber. Moderate constipation is observed. Visualized portions of the appendix are normal. Peritoneum: There is no intraperitoneal free air or abdominal ascites. There is a fat-containing umbilical hernia. Lymphadenopathy: None. Skeletal structures: No lytic or blastic lesions are seen. IMPRESSION: 1. Again seen are 2 hypodense lesions within the left hepatic lobe measuring up to 10 mm. These cannot be definitively characterized due to their small size, but when correlated with the 01/10/2017 ultrasound almost certainly represent benign hemangiomas. These are of doubtful significance if there is no cancer history. Follow-up should be based on clinical grounds only. 2. Moderate constipation. 3. Nonobstructing left renal calculi. Electronically signed by: Nicholas Zimmerman M.D. 07/26/2017 8:50 AM Dictated Date/Time: 07/26/2017 8:37 AM
== END | disposition home or self-care (01) ==
LOC: C.CTS 07:55
PROVIDERS: ATTEND Physician Assistant
DX: D18.03 Hemangioma of intra-abdominal structures (principal)

== ENCOUNTER → 2017-08-23 | Outpatient (CLI) | payer OTHER ==
[~2017-08-23] MED LIST changes: +GADAVIST IV PRN; -OPTIRAY 320 IV PRN
--- NOTE | 2017-08-23 09:12 | DIAGNOSTIC IMAGING REPORT ---
THORACIC SPINE COMBO HISTORY: 32 years-old Female M54.9 Mid back [id number] acute mid back pain with radiation into the abdomen. Pain started following a section. COMPARISON: Lumbar spine MRI 10/21/2015, CT of the liver 07/26/2017 TECHNIQUE: Multiplanar multisequence MRI of the thoracic spine was obtained both with and without the use of 7.5 mL Gadavist FINDINGS: The large [id number] rn diabetes educator localizer images demonstrate no gross abnormality. 4 mm T2 hyperintense lesion of the medial aspect interpolar left kidney is too small to characterize however suggests renal cyst with probable additional subcentimeter renal cyst of the interpolar left kidney. No aortic aneurysm or adenopathy. Signal within the imaged thoracic spinal cord is within normal limits without focal lesion identified. Conus medullaris terminates at the L1 level. 6 mm focal area of T1 and T2 hyperintensity involving the T11 vertebral body suggests hemangioma or focal fatty marrow. There is no focal bone marrow edema, acute fracture or subluxation. Intervertebral disc spaces are maintained and within normal limits. No significant disc bulging, disc protrusion, significant central canal or foraminal narrowing. There is no abnormal enhancement identified. The axial postcontrast T1 fat saturation images are motion degraded. IMPRESSION: 1. No significant discogenic degenerative changes, central canal or foraminal narrowing. 2. No abnormal enhancement. The above report was generated using voice recognition software. It may contain grammatical, syntax or spelling errors. Electronically signed by: John Rosa M.D. 08/23/2017 9:11 AM Dictated Date/Time: 08/23/2017 9:02 AM
== END | disposition home or self-care (01) ==
LOC: C.MRI 08:00
PROVIDERS: ATTEND Psychiatry & Neurology Neurology
DX: M54.6 Pain in thoracic spine (principal)

== ENCOUNTER → 2017-09-24 | Outpatient (CLI) | payer OTHER ==
[~2017-09-24] MED LIST changes: -GADAVIST IV PRN; +NORE0.3537 PO; -NORETAB25 PO
--- NOTE | 2017-09-24 08:41 | DIAGNOSTIC IMAGING REPORT ---
PELVIC COMPLETE NON OB CLINICAL HISTORY: ABDOMINAL PAIN PAIN COMPARISON STUDY: None FINDINGS: The uterus measured 7.8 cm. The endometrial stripe measured 4 mm. The right ovary measured 2.9 cm maximum dimension with normal vascular flow. The left ovary measured 2.8 cm with normal vascular flow. Very small bilateral follicular cysts are present. There is no ultrasonographic evidence of ovarian torsion. It should be noted that ovarian torsion can be present with normal Doppler ultrasonographic findings. There was no evidence of pathologic free pelvic fluid. IMPRESSION: Normal pelvic ultrasound. Several small physiologic follicular cysts bilaterally. The above report was generated using voice recognition software. It may contain grammatical, syntax or spelling errors. Electronically signed by: Taz Valdivia M.D. 09/24/2017 8:40 AM Dictated Date/Time: 09/24/2017 8:39 AM
== END | disposition home or self-care (01) ==
LOC: C.ULTRBC 07:49
PROVIDERS: ATTEND Obstetrics & Gynecology
DX: R10.9 Unspecified abdominal pain (principal)

== ENCOUNTER → 2017-10-07 | Outpatient (CLI) | payer OTHER | END | disposition home or self-care (01) | LOC: C.LABBC 07:54 | PROVIDERS: ATTEND Family Medicine Adult Medicine | DX: R10.9 Unspecified abdominal pain (principal) ==

== ENCOUNTER 2023-03-13 05:56 | Observation (INO) ==
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
[2023-03-13] MEDS ORDERED: LACTATED RINGER'S 1,000 ML IV SCH (06:00)
[2023-03-13] MEDS ORDERED: TRANEXAMIC ACID 1,000 MG **IV Pre-op IV SCH (06:00)
[2023-03-13] MEDS ORDERED: LR 15ML/HR IV SCH (06:00)
[2023-03-13] MEDS ORDERED: TRANEXAMIC ACID 1,000 MG **IV Intra-op IV SCH (06:00)
[2023-03-13] MEDS ORDERED: ATROPINE SULFATE 0.1 MG/ML 10ML SYR IV PRN (06:38)
[2023-03-13] MEDS ORDERED: ePHEDrine sulfate 50 MG/ML AMP IV PRN (06:38)
[2023-03-13] MEDS ORDERED: ONDANSETRON INJ 2 MG/ML 2 ML VIAL IV PRN ×2 (06:38→15:27)
[2023-03-13] MEDS ORDERED: HYDROmorphone INJ 1 MG/ML SYRINGE IV PRN (06:38)
[2023-03-13] MEDS ORDERED: SCOPOLAMINE 1 MG TDSY TD ONE ×2 (06:49→06:50)
--- NOTE | 2023-03-13 06:55 | History & Physical Bridge Note ---
Date of Service March 13, 2023 History & Physical Bridge Note I have examined the patient, reviewed the History & Physical and in the interval since the performance of the History & Physical I have noted the following changes of clinical significance: no changes noted
[2023-03-13] MEDS ORDERED: ACETAMINOPHEN 1000 MG/100 ML IV IV ONE (07:12)
[2023-03-13] MEDS ORDERED: BUPIVACAINE 0.25% PF 30 ML VIAL ONE (07:12)
[2023-03-13] MEDS ORDERED: LIDOCAINE 1%/EPINEPHRINE 1:100,000 20 ML VIAL ONE ×2 (07:12→09:40)
[2023-03-13] MEDS ORDERED: fentaNYL citrate PF 100 MCG/2 ML VIAL ONE ×2 (07:14→08:24)
[2023-03-13] MEDS ORDERED: PROPOFOL IV EMULSION 10 MG/ML 20 ML VIAL IV ONE (07:14)
[2023-03-13] MEDS ORDERED: MIDAZOLAM HCL 1 MG/ML 2ML VIAL ONE (07:14)
[2023-03-13] MEDS ORDERED: LIDOCAINE 2% 2 ML VIAL/AMP(20MG/ML) INFIL ONE (07:14)
[2023-03-13] MEDS ORDERED: ROCURONIUM BROMIDE 10 MG/ML 5 ML VIAL IV ONE (07:14)
--- NOTE | 2023-03-13 07:32 | History & Physical Bridge Note ---
Date of Service March 13, 2023 History & Physical Bridge Note I have examined the patient with Dr. Faria, reviewed the History & Physical and in the interval since the performance of the History & Physical I have noted the following changes of clinical significance: no changes noted.
[2023-03-13] MEDS ORDERED: PHENYLEPHRINE HCL 10 MG/ML VIAL ONE (08:27)
[2023-03-13] MEDS ORDERED: ePHEDrine sulfate 50 MG/ML AMP ONE (08:36)
--- NOTE | 2023-03-13 09:21 | Operative Report ---
PG Post Operative Report Pre & Post Diagnosis Operation Date: 03/13/23 07:30 <No data on this case meets the specified criteria> I identified the patient and participated in the time-out.: Yes Procedure Operation Date: 03/13/23 07:30 <No data on this case meets the specified criteria> Surgeon Renea Ynu DO Tyre Fitter Dr. Faria, AGUSTINA Bobo Estimated Blood Loss 3 Findings Consistent with Post-Op Diagnosis Specimens Left breast mass Anesthesia Type General Complications None Indications Large, left breast mass Description of Procedure The patient was brought back to the operating room and placed on the operating room table in supine position. She was connected to oxygen and cardiac monitoring. General anesthesia was administered and the secured airway was obtained. The anterior chest was prepped and draped in typical sterile fashion. Dr. Faria began the case creating incisions and superficial l removal for her planned breast reduction. She will dictate the parts of her procedure in a separate operative report. I begin with the injection of local anesthetic into the skin and subcutaneous tissue at the inferior aspect of the left breast outside of areas planned to preserve skin. Cautery and blunt dissection was used to dissect to an encapsulated breast mass that was completely dissected out using alternating cautery and blunt dissection. The mass was removed and marked with a short silk suture superiorly and a long lateral silk suture. Intraoperative imaging revealed retrieval of both the Allyn mental health consultant marker and biopsy clip. The specimen was then sent to pathology and labeled container for further analysis. I attest to the content of the Intraoperative Record and any orders documented therein. Any exceptions are noted below.
[2023-03-13] MEDS ORDERED: ONDANSETRON INJ 2 MG/ML 2 ML VIAL ONE (09:39)
[2023-03-13] MEDS ORDERED: SUGAMMADEX SODIUM 200 MG/2 ML VIAL IV ONE (11:24)
--- NOTE | 2023-03-13 11:40 | Post Operative Brief Note ---
PG Immediate Post Op with CF Date of Surgery March 13, 2023 Pre & Post Diagnosis Operation Date: 03/13/23 07:30 Pre-Op Diagnosis: Left Breast Mass Macromastia Post-Op Diagnosis: Left Breast Mass Macromastia I identified the patient and participated in the time-out.: Yes Procedure Operation Date: 03/13/23 07:30 Actual Procedures p Bilateral Breast Reduction with Free Nipple Graft - Helene Faria MD s Left Breast Mass Excision with Localization Using Allyn Environment Friendly Landscape Designer Marker(Left) - Bud Yun DO Surgeon Helene Faria MD Liquified Natural Gas Technician Dr. Faria, AGUSTINA Bobo Estimated Blood Loss 25 Findings Consistent with Post-Op Diagnosis Specimens Specimen Description: A. Left Breast Mass-Short stitch superior, Long stitch lateral sent to lab fresh at 0919 B: Left breast tissue- weight 344 grams C. Right Breast Tissue-weight 272 grams Drains Fortune Catheter (16 fr fortune catheter inserted without difficulty by Argenis Morin RN. Anesthesia to monitor urine output intraoperatively.) and Other (15fr channel drain x 2) Anesthesia Type General
[2023-03-13] MEDS ORDERED: ACETAMINOPHEN 325 MG TAB PO PRN (11:51)
[2023-03-13] MEDS ORDERED: oxyCODONE/ACETAMINOPHEN 5mg/325mg TAB PO PRN (11:51)
[2023-03-13] MEDS ORDERED: PROMETHAZINE HCL INJ 25 MG/ML 1 ML VIAL ONE (12:19)
[2023-03-13] MEDS ORDERED: PROMETHAZINE HCL 6.25 MG in SODIUM CHLORIDE 0.9% 50 ML IV PRN (12:19)
[2023-03-13] MEDS: fentaNYL citrate PF 100 MCG/2 ML VIAL IV PRN ×3 (12:20→12:33)
--- NOTE | 2023-03-13 13:28 | Anesthesiology Progress Note ---
Date of Service March 13, 2023 Anesthesia Post Procedure Vital Signs Vital Signs: Temp Pulse Resp BP Pulse Ox O2 Del Method O2 Flow Rate 03/13/23 13:15 75 12 117/73 96 Room Air 03/13/23 13:05 67 12 106/62 94 Room Air 03/13/23 12:25 70 15 113/75 94 Room Air 03/13/23 12:55 66 12 98/71 L 92 Room Air 03/13/23 12:45 60 18 109/65 95 Nasal Cannula 2 03/13/23 12:35 70 15 129/73 92 Room Air 03/13/23 12:15 81 21 107/68 100 Oxymask 4 03/13/23 12:05 70 15 107/67 98 Oxymask 13 03/13/23 11:56 96.8 F L 74 17 102/66 98 Oxymask 13 03/13/23 06:24 98.4 F 88 20 131/76 98 Room Air Pain Intensity Bilateral Breast: Pain Intensity: 5 Transfer of Care Handoff Completed per policy Notes Mental Status: alert / awake / arousable and participated in evaluation Patient Amnestic to Procedure: Yes Nausea / Vomiting: adequately controlled Pain: adequately controlled Airway Patency, RR, SpO2: stable & adequate BP & HR: stable & adequate Hydration State: stable & adequate Anesthetic Complications: no major complications apparent and Pt Satisfied with anesthetic care
--- NOTE | 2023-03-13 15:09 | Mammography Report ---
SPECIMEN LEFT BREAST: 03/13/2023 CLINICAL HISTORY: 38-year-old woman presents at time of left breast mass excision and concurrent redu ction mammoplasty. A previously biopsied benign mass occupying the anterior subareolar left breast wa s localized with a Allyn Radiagraph Operator reflector on 03/05/2023. COMPARISON: Comparison is made to exams dated: 03/05/2023 mammogram, 03/05/2023 localization, ultrasound, 09/10/2022 mammogram, 02/22/2022 mammogram, and 08/17/2021 mammogram - [facility]. FINDINGS: Specimen radiography was performed of the left breast surgical excision tissue specimen. T he specimen demonstrates the large 5 cm mass with associated ribbon-shaped biopsy marker and Allyn Sco ut reflector, compatible with successful preoperative localization and subsequent surgical excision. This was discussed with the operating surgeon via telephone at the time of surgery. Final pathology results are pending. IMPRESSION: SPECIMEN Left breast surgical excision tissue specimen radiograph, as above. Anais Dallas M.D. ay/:03/13/2023 12:39:16 copy to: Helene Faria Mediation Commissioner: OR Technologist, [facility]
[2023-03-13] MEDS ORDERED: MoRPHine SULFATE 2 MG/ML CARP IV PRN (15:25)
[2023-03-13] MEDS ORDERED: MoRPHine SULFATE 4 MG/ML 1 ML CARP\\VIAL IV PRN (15:25)
[2023-03-13] MEDS ORDERED: diphenhydrAMINE Capsule 25 MG CAP PO PRN (15:27)
[2023-03-13] MEDS ORDERED: diphenhydrAMINE 50 MG/ML VIAL IV PRN (15:27)
[2023-03-13] MEDS ORDERED: LORazepam 0.5 MG TAB PO PRN (15:27)
[2023-03-13] MEDS ORDERED: PROMETHAZINE HCL 12.5 MG in SODIUM CHLORIDE 0.9% 50 ML IV PRN (15:27)
--- NOTE | 2023-03-13 16:04 | Operative Report ---
PG Post Operative Report Pre & Post Diagnosis Operation Date: 03/13/23 07:30 Pre-Op Diagnosis: Left Breast Mass Macromastia Post-Op Diagnosis: Left Breast Mass Macromastia I identified the patient and participated in the time-out.: Yes Procedure Operation Date: 03/13/23 07:30 Actual Procedures p Bilateral Breast Reduction with Free Nipple Graft - Helene Faria MD s Left Breast Mass Excision with Localization Using Allyn Cook Jelly Marker(Left) - Renea Yun DO Surgeon Helene Faria MD Client Services Specialist Dr. Faria, AGUSTINA Bobo Estimated Blood Loss 25 Findings Consistent with Post-Op Diagnosis Specimens Left breast tissue 344 g, including large fibroadenoma Right breast 272 g Drains [id number] Anesthesia Type General Complications none Indications Patient with large retroareolar fibroadenoma requiring lumpectomy, desiring breast reduction for symmetry and to relieve symptoms of back and neck pain. Description of Procedure The risks, benefits and alternatives of the procedure were explained to the patient who agreed and signed consent. She was identified and marked in the preoperative holding area. She was brought to the operating room where she was positioned supine and placed under general anesthesia without incident. Surgical site was prepped and draped sterilely. A timeout procedure was performed. Surgical site markings were again reassessed. We began with the left breast. 1% lidocaine with epinephrine was used to anesthetize the planned incisions. I began by applying a breast tourniquet using a Danielle clamp and lap sponge. A 38 mm cookie cutter was used to circumscribe the nipple areolar complex. The nipple areolar complex was then removed as a full-thickness graft and placed on the back table and a saline soaked sponge. I then made the vertical limb incisions and keyhole incisions using a 15 blade scalpel and de-epithelialized this tissue. At this point, Dr. Kristi Rico performed the lumpectomy. I was present when Dr. Kristi Rico performed the lumpectomy procedure on the left breast, which will be separately dictated by her. Mass was located essentially behind to the nipple areolar complex. She did make her incision along the lateral aspect of the breast along tissue that was planned to be resected. At the time of her resection, the mass essentially abutted to the dermis just beneath the nipple. At the completion of removal of the mass, I did resume the breast reduction. In order to preserve projection of the breast and provide the best possible shape, I began by de-epithelializing the medial and lateral aspect of the left breast. I then removed the skin and soft tissue bridge which had been created from resection of the mass. I was able to preserve dermal glandular tissue along the inframammary fold that essentially would have been the equivalent of about the inferior most third of an inferior pedicle. All the tissue appeared healthy and viable, with good bleeding. I then performed a wedge resection of the medial and lateral aspects of the breast, undermined the superior flap to facilitate closure. Intervening dermal tissue in between the vertical limbs was very thin and only involve the deep dermis, and therefore this was excised. After achieving hemostasis with electrocautery, the wound bed was irrigated. Course Marcaine plain was used to anesthetize the wound bed, pectoralis fascia and edges of the incision. A 15 Guamanian Blaise drain was brought out through a separate stab incision lateral to the incision toward the axilla. The T-junction was then brought together using 2-0 Vicryl suture. Closure was first begun lateral to medial using 2-0 Vicryl deep dermal sutures and then medial to lateral using 2-0 Vicryl deep dermal sutures. Vertical limb was closed in a combination of 2-0 Vicryl deep dermal sutures and 3-0 PDS interrupted dermal sutures. The inframammary fold incision was closed using 2-0 PDO deep dermal running Quill suture. Vertical limb was closed using 3-0 Monocryl running subcuticular suture. Overall, there was excellent projection and size of the breast. Total resection weight on the left was 344 g, of which 128 g was the fibroadenoma. Attention was then turned to the right breast. 1% lidocaine with epinephrine was used to anesthetize the planned incisions as well as the nipple areolar complex. A breast tourniquet was applied using the Danielle clamp and lap sponge. A 38 mm cookie cutter was used to circumscribe the nipple-areolar complex. The nipple-areolar complex was then removed as a full thickness graft and placed on the back table in saline soaked sponge. At this point, tourniquet was released and the inframammary fold incision was made using 15 blade scalpel. Electrocautery was used to deepen the incision through subcutaneous fat and breast parenchyma down to chest wall. Care was taken to perform this in a bevelled direction ligating vessels as needed and achieving hemostasis with electrocautery. Once the breast was mostly undermined, the superior incision was then made to the inferior aspect of the keyhole incision. This was performed using a 15 blade scalpel. Incision was then deepened using electrocautery again full thickness through the breast. A similar incision was made laterally. Centrally, the skin was incised using electrocautery and additional breast parenchyma was resected again in a beveled fashion in order to retain some projection of the breast. Tissue was passed off for weighing. Additional resection was performed until we achieved the desired size and the wound was able to be closed with minimal tension. Total resection weight on the right was 272 grams. Hemostasis was achieved with electrocautery 0.25% Marcaine plain was used to anesthetize the incisions as well as pectoralis fascia. A 15 Guamanian Blaise drain was brought out through a separate stab incision laterally toward the axilla. The keyhole was then incised using 15 blade scalpel and deepithelialized. T-junction wasbrought together using 2-0 Vicryl suture. Closure was begun first lateral to medial using 2-0 Vicryl deep dermal sutures and then medial to lateral using 2-0 Vicryl deep dermal sutures. Vertical limb was closed using a combination of 2-0 Vicryl deep dermal sutures and a 3-0 PDS interrupted dermal sutures. The inframammary fold incision was closed using 2-0 PDO deep dermal running Quill suture. The vertical limb was then closed using 3-0 Monocryl running subcuticular suture. Lastly, the nipple areolar complexes were inspected and thinned using a curved iris scissor. They were placed in the corresponding recipient beds and sutured into place using 4-0 silk tie over bolster sutures and 4-0 chromic interrupted sutures. There was excellent symmetry at the close of the case. No complications. Dermabond Prineo was applied to the incisions. Dry dressing followed by a surgical bra were placed. The patient was awakened and transferred to the recovery room in satisfactory condition. Marya Day PA-C was present and scrubbed throughout the entire procedure and was instrumental in providing retraction, preparing the nipple graft and assisting in simultaneous wound closure. I attest to the content of the Intraoperative Record and any orders documented therein. Any exceptions are noted below.
--- NOTE | 2023-03-13 16:24 | Electrocardiogram Report ---
Test Reason : Blood Pressure : / mmHG Vent. Rate : 090 BPM Atrial Rate : 090 BPM P-R Int : 130 ms QRS Dur : 074 ms QT Int : 386 ms P-R-T Axes : 077 025 033 degrees QTc Int : 472 ms Normal sinus rhythm Nonspecific ST abnormality Abnormal ECG No previous ECGs available Confirmed by Bg Bellamy ([id number]) on 03/13/2023 4:24:27 PM Referred By: Helene Faria Confirmed By:Bg Bellamy
[2023-03-13] MEDS: CHECK SCOPOLAMINE PATCH PLACEMENT SCH ×2 (18:11→23:15)
[2023-03-13] MEDS: ceFAZolin 2000MG 2,000 MG/15 ML SYR IV SCH (18:44)
[2023-03-13] MEDS: D5W AND 1/2NSS + 20MEQ KCL 20 MEQ/1,000 ML BAG IV SCH (18:44)
[2023-03-13] MEDS: oxyCODONE/ACETAMINOPHEN 5mg/325mg TAB PO PRN (19:54)
[2023-03-14] MEDS: ceFAZolin 2000MG 2,000 MG/15 ML SYR IV SCH (01:58)
[2023-03-14] MEDS: oxyCODONE/ACETAMINOPHEN 5mg/325mg TAB PO PRN (06:22)
[2023-03-14] MEDS ORDERED: LEVOTHYROXINE SODIUM 50 MCG TABLET PO SCH (06:30)
[2023-03-14] MEDS: D5W AND 1/2NSS + 20MEQ KCL 20 MEQ/1,000 ML BAG IV SCH (08:08)
[2023-03-14] MEDS: CHECK SCOPOLAMINE PATCH PLACEMENT SCH (08:08)
--- NOTE | 2023-03-14 08:43 | Surgery Progress Note ---
Date of Service March 14, 2023 Assessment & Plan (1) S/P bilateral breast reduction: Plan: Drains removed today. D/C home- antibiotics sent to pharmacy, patient aware to start today. She has office f/u scheduled for next week to remove bolsters. Admission and Anticipated Discharge Date Admission Date: March 13, 2023 Subjective Carlee is one day s/p bilateral breast reduction with free nipple graft, excision of fibroadenoma from the left breast. She was kept overnight for pain control. Pain is now under control with use of Endocet. She feels ready to go home. Physical Exam Physical Exam: bilat drains with serosang output removed. NAC bolsters intact. no significant edema or ecchymosis of the breasts Results & Data Vital Signs (Past 12 Hours) Vital Signs Temp Pulse Resp BP Pulse Ox O2 Del Method 03/14/23 07:25 37.0 C 86 18 100/63 95 Room Air 03/14/23 02:35 36.8 C 83 16 119/71 97 Room Air 03/13/23 23:30 Room Air PG Care Time/CCT Total # of Minutes Spent Total Time Spent with Patient: Total time spent is greater than 50% in coordination of care (as documented) at patient's floor/unit and/or counseling patient: Coding Level of Care Code 18156 Post Operative Follow-Up Diagnoses S/P bilateral breast reduction Z98.890
[2023-03-14] MEDS ORDERED: MULTIVITAMIN TAB PO SCH (09:00)
--- NOTE | 2023-03-15 09:06 | Discharge Summary ---
Date of Service March 15, 2023 Admission HPI Per Admitting Provider History of left breast fibroadenoma, macromastia Admission Exam Per Admitting Provider large, mobile breast mass left breast Principal Diagnosis left breast fibroadenoma Discharge Exam bilat drains with serosang output removed. NAC bolsters intact. no significant edema or ecchymosis of the breasts Discharge Data Allergies Allergy/AdvReac Type Severity Reaction Status Date / Time No Known Allergies Allergy Verified 03/13/23 06:23 Procedures Performed Operation Date: 03/13/23 07:30 Actual Procedures p Bilateral Breast Reduction with Free Nipple Graft - Helene Faria MD s Left Breast Mass Excision with Localization Using Allyn Barrel Endshake Adjuster Marker(Left) - Renea Yun DO Ordered Studies 03/13/23 05:00 US - OR guided needle placemen Routine Hospital Course (1) S/P bilateral breast reduction: Patient presented to [facility] with history of symptomatic macromastia, history of left breast fibroadenoma. She was taken to the OR and underwent bilateral breast reduction. There were no intraoperative complications. She was taken to recovery and transferred to med/surg for observation. On POD#1, she was feeling well. She was tolerating a regular diet and ambulating. On exam, her vitals were stable. Her incisions were CDI and nipples viable. Her drains were removed. She was discharged home with instructions to follow-up in the office in one day. Total Time Total Time Spent Total Time Spent (In Minutes): 20 Total Time Includes: Examination of the Patient, Medication Reconciliation and Communication With Other Providers Discharge Plan Discharge Items Patient Disposition: Home - Self-Care Reason For Visit: S/P BILATERAL BREAST REDUCTION W BREAST MASS EXCIS Discharge Diagnosis: s/p bilateral breast reduction, excision of left breast mass Activity: As commented below Non-emergency contact: Surgeon Call non-emergency contact if: you have any medication questions, your pain is concerning for you and your wound has increased redness Follow-up/Referrals: Marya Day PA-C [Physician Materials Development Engineer] - Divina Ulloa MD [Primary Care Provider] - Renea Yun DO [Physician] - (Please call to schedule follow up in clinic within 2 weeks ) Diet: Regular Addtl Attending Provider Instructions: ACTIVITY RECOMMENDATIONS: __Normal activities _x_No bending, lifting or straining. Keep arms at shoulder height or below __No driving __Driving allowed when you are off pain medications _x_Walking permitted __You should have help at home for ___ days DRESSINGS: __No dressings required _x_Keep dressings dry/in place until first office visit. You may adjust the bra for comfort, but keep it on at all times _x_Remove dressings _tomorrow__ and leave dressings off. Wear a clean shirt under the bra for comfort. __Apply ice ___ days __Remove dressings and reapply garment __Apply antibiotic ointment (Bacitracin, Neosporin, etc) to wounds 3-4 times/day for 10 days BATHING: _x_Keep dressings dry _x_Sponge bathing permitted away from surgical dressings- do not get them wet __Showering permitted _x_No swimming, hot tubs or soaking in a tub MEDICATIONS: Resume previous medications unless instructed otherwise by your surgeon. _x_Do not use aspirin, Motrin, Advil or Ibuprofen as these may promote bleeding. Please use Tylenol. _x_Prescription(s) provided: pain medication was provided at your last office visit.Antibiotics were sent to [facility] today. Begin antibiotics today OTHER INSTRUCTIONS: __Record drain output 2-3 times per day. SPECIAL CARE INSTRUCTIONS: * It is normal to have a mild fever after surgery. If your temperature is higher than 101.5 degrees F, please call the office at [phone]. * Constipation is a typical side effect of pain medication. An [id number] stool softener will help relieve this. * Leaking around surgical drains may occur and should not cause concern. Sometimes these drains become clogged. If this happens, remove the bulb and milk the clot out of the tube, then replace the bulb. * Drainage from wounds after liposuction is normal and should be expected. Garments will become soiled. You should protect furniture and bedding. This drainage should mostly subside within 2-3 days. Leave garments in place unless instructed to remove them. * If you have unusual drainage from a wound or are concerned you have an infection or have any questions or concerns, please call the office at [phone]. FOLLOW UP VISIT: If not already scheduled, please call the office, , when you return home after surgery to schedule an appointment to be seen in __6_ days. Pending Studies at Discharge: Yes Stand-Alone Forms: Anesthesia/Sedation, Adult, [facility], Pain - Opioid Pain Management Medications and DC Order Prescriptions: New cephalexin 500 mg capsule 500 mg PO BID 7 Days Qty: 14 0RF Continued levothyroxine 50 mcg tablet 50 mcg PO QAM Discharge Orders: Discharge Order (Routine); Ordered 03/14/23 Ordered By: Marya Copeland/Other Patient Handouts: Preventing Deep Vein Thrombosis Admission Data Admit Date/Time: 03/13/23 15:27 Attending Provider: Helene Faria Admit Provider: Helene Faria Primary Care Provider: Divina Ulloa Other Interventions: Discharge Summary Assessment (RN) Last Done: 03/14/23 09:15 Coding Level of Care Code 17723 OBS Care - Discharge Diagnoses S/P bilateral breast reduction Z98.890
== END 2023-03-14 09:29 | disposition home or self-care (01) ==
LOC: ASU 05:56 → 3W 05:56